=== PATIENT | male | born 1930 | race Caucasian/White ===

== ENCOUNTER 2019-05-11 12:33 | Inpatient (IN) | payer MEDICARE ==
[2019-05-11] MEDS ORDERED: Diltiazem 125 MG/25 ML ONE ×2 (13:03→13:07)
[2019-05-11] MEDS ORDERED: Aspirin Chewable 81 MG TAB ONE (13:06)
[2019-05-11 13:33] LABS: Hemoglobin 10.7 g/dL (14.0-18.0); Mean Corpuscular HGB CONC 33.3 g/dL (32.0-36.0); Mean Corpuscular Hemoglobin 31.8 pg (27.0-31.0); Mean Corpuscular Volume 95.7 fL (78.0-98.0); Mean Platelet Volume 8.2 fL (7.4-10.4); Platelet Count 140 thou/uL (130-400); RBC Distribution Width 12.6 % (11.5-14.5); Red Blood Cell (RBC) Count 3.35 mill/uL (4.70-6.10); White Blood Cell (WBC) Count 10.2 thou/uL (4.8-10.8)
[2019-05-11 13:51] LABS: ALT (SGPT) 28 U/L (8-55); AST (SGOT) 59 U/L (5-34); Albumin 3.5 g/dL (3.4-4.8); Alkaline Phosphatase 100 U/L (40-110); Anion Gap 14 mmol/L (10-20); BUN (Urea Nitrogen) 25 mg/dL (8.4-25.7); Bilirubin, Total 0.9 mg/dL (0.2-1.2); Calc. Creatinine Clearance 0 mL/min (70-130); Calcium 8.5 mg/dL (7.8-10.44); Carbon Dioxide 26 mmol/L (23-31); Chloride 97 mmol/L (98-107); Estimated GFR-MDRD 42; Globulin 3.1 g/dL (2.4-3.5); Glucose 140 mg/dL (83-110); Magnesium 2.1 mg/dL (1.6-2.6); Potassium 3.9 mmol/L (3.5-5.1); Protein, Total 6.6 g/dL (5.8-8.1); Sodium 133 mmol/L (136-145)
[2019-05-11 13:56] LABS: Band 12 % (5-11); MDiff Complete? YES; Monocytes 7 % (0-10); Neutrophil 81 % (42-75); Ovalocytes SLIGHT = 2-5 cells (100X) (0-1/hpf); Platelet Morphology Comment Appears Adequate; Polychromasia SLIGHT = 2-3 cells (100X) (0-2/hpf)
[2019-05-11 14:10] LABS: Actual Bicarbonate (HCO3a) 25.6 mEq/L (22-28); Base Excess (BEa) 2.2 mEq/L (-2.0 to +3.0); CO2 Tension 35.2 mmHg (35.0-45.0); Calcium, Ionized 1.09 mmol/L (1.12-1.30); Carboxyhemoglobin (COHb) 0.1 gm% (0.0-3.0); Hemoglobin (Hb) 10.8 g/dL (14.0-18.0); O2 Tension (PaO2) 76.7 mmHg (> 60.0); Potassium - ABG Lab 3.82 mmol/L (3.70-5.30); pH, Arterial 7.48 (7.35-7.45)
[2019-05-11 14:12] LABS: Puncture Site RRAD
[2019-05-11 14:21] LABS: CKMB 0.7 ng/mL (0-6.6)
[2019-05-11] MEDS ORDERED: Furosemide 40 MG/4 ML VIAL ONE (14:27)
[2019-05-11] MEDS ORDERED: cefTRIAXone\\ROCEPHIN 1 GM VIAL ONE (14:29)
--- NOTE | 2019-05-11 14:30 | RAD ---
EXAM: CHEST ONE VIEW HISTORY: Chest pain, dyspnea, congestion. Weakness. COMPARISON: 07/24/2011 FINDINGS: Triple lead left subclavian AICD device again remains in place. Aortic valve replacement is noted. Ca rdiac silhouette is enlarged. Pulmonary vasculature is within normal limits. Mild bibasilar parenchymal densities are seen which could be related to atelectasis. Pneumonia is not entirely exclu ded. Vascular calcification are seen in the thoracic aorta. No other interval change. IMPRESSION: 1. Bibasilar parenchymal airspace densities which could be related to bibasilar atelectasis. However, pneumonia at either lung base cannot be excluded. Follow-up exam is recommended. 2. Cardiomegaly.
[2019-05-11] MEDS ORDERED: CCU Electrolyte Replacement 1 EACH FS ONE (15:52)
[2019-05-11] MEDS ORDERED: Acetaminophen 325 MG TAB PO PRN (16:14)
[2019-05-11] MEDS ORDERED: Diltiazem 125 MG in Sodium Chloride 0.9% 100 ML IVPB SCH (16:30)
[2019-05-11] MEDS ORDERED: Enoxaparin Sodium 80 MG/0.8 ML SYRINGE SC SCH ×2 (16:30→21:00)
[2019-05-11] MEDS ORDERED: Potassium Phosphate 15 MMOL in Sodium Chloride 0.9% 250 ML 250 ML IV PRN (16:40)
[2019-05-11] MEDS ORDERED: Potassium Chloride 40 MEQ in Premix Bag 1 BAG IVPB PRN (16:40)
[2019-05-11] MEDS ORDERED: Potassium Chloride 40 MEQ in Sodium Chloride 0.9% 250 ML 250 ML IVPB PRN (16:40)
[2019-05-11] MEDS ORDERED: PHOS-NAK 1 PKT PACK PO PRN ×2 (16:40)
[2019-05-11] MEDS ORDERED: Potassium Chloride 20 MEQ TAB PO PRN (16:40)
[2019-05-11] MEDS ORDERED: Magnesium 2 GM/50 ML 2 GM in Premix Bag 1 BAG IVPB PRN (16:40)
[2019-05-11] MEDS ORDERED: Potassium Phosphate 12 MMOL in Sodium Chloride 0.9% 250 ML 250 ML IV PRN (16:40)
[2019-05-11] MEDS ORDERED: CCU ELECTROLYTE REPLACEMENT PROTOCOL FS PRN (16:40)
[2019-05-11] MEDS ORDERED: Potassium Phosphate 9 MMOL in Sodium Chloride 0.9% 100 ML IVPB PRN (16:40)
[2019-05-11] MEDS ORDERED: Magnesium Oxide 400 MG TAB PO PRN ×2 (16:40)
--- NOTE | 2019-05-11 17:16 | CON ---
DATE OF CONSULTATION: CONSULTING PHYSICIAN: Miles Garcia MD REASON FOR CONSULTATION: Flu, pneumonia, acute respiratory failure. HISTORY OF PRESENT ILLNESS: The patient is an 88-year-old male, who still lives independently. He has been sick for about a week. He was brought to the hospital with increasing shortness of breath. He was found to have type A flu with pneumonia. PAST MEDICAL HISTORY: 1. Hypertension. 2. Probable cardiomyopathy based on the fact that he has a defibrillator. 3. Coronary artery disease. PAST SURGICAL HISTORY: Aneurysm repair. ALLERGIES: NONE. MEDICATIONS: Prior to admission: 1. Aspirin 81 mg daily. 2. Paroxetine 20 mg daily. 3. Lisinopril 10 mg daily. 4. Spironolactone 25 mg daily. 5. Digoxin 0.125 mg daily. 6. Eliquis 2.5 mg twice daily. 7. Bumex 2 mg daily. 8. Singulair 10 mg daily. 9. Metoprolol 25 mg extended release daily. 10. Nifedipine 30 mg daily. 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 Denies smoking, very occasionally drinks alcohol. REVIEW OF SYSTEMS: Twelve-point review of systems is otherwise negative. PHYSICAL EXAMINATION: VITAL SIGNS: Temperature is 98.7, pulse 119, blood pressure 127/78, respiratory rate 30s, O2 saturation 95% on BiPAP. GENERAL: The patient appears to be in moderate respiratory distress on BiPAP. HEENT: Pupils react, sclerae icteric. Oropharynx dry. NECK: No adenopathy or JVD. LUNGS: Fairly clear bilaterally. CARDIOVASCULAR: S1, S2. Irregularly irregular. He has a large defibrillator implant in the left upper quadrant of chest. ABDOMEN: Soft nontender. EXTREMITIES: No clubbing, cyanosis, or edema. NEUROLOGIC: Nonfocal. LABORATORY DATA: Sodium 133, potassium 3.9, chloride 97, CO2 of 26, BUN 25, creatinine 1.6, glucose 140. BNP 411. PH of 7.48, pCO2 of 35, and pO2 of 76. White blood cell count 10, hematocrit 32.1, and platelet count 114. His test was positive for type A flu. Chest x-ray demonstrates bilateral lower lobe changes. ASSESSMENT: 1. Influenza with pneumonia. 2. Suspected exacerbation of systolic heart failure secondary to the influenza. 3. Atrial fibrillation with rapid ventricular response. PLAN: 1. The patient is going to require BiPAP at least temporarily. 2. Would treat him with Tamiflu plus empiric antibiotics. 3. Generalized supportive care, otherwise. We will follow. Job ID: [id number]
[2019-05-11 17:28] LABS: Digoxin 0.52 ng/mL (0.8-2.0)
[2019-05-11 17:34] LABS: Troponin I 0.088 ng/mL (< 0.028)
[2019-05-11] MEDS ORDERED: Digoxin 0.5 MG/2 ML AMP SLOW IVP SCH (19:30)
[2019-05-11] MEDS: Sodium Chloride 0.9% 1,000 ML IV SCH (19:47)
[2019-05-11 19:54] LABS: Troponin I 0.075 ng/mL (< 0.028)
[2019-05-11] MEDS: methylPREDNISolone Sod Succ 40 MG VIAL IVP SCH (19:58)
[2019-05-11] MEDS: Montelukast Sodium 10 mg Tablet PO SCH (19:59)
[2019-05-11] MEDS: Oseltamivir 75 MG CAP PO SCH (19:59)
[2019-05-11] MEDS ORDERED: Famotidine 20 MG TAB PO SCH (21:00)
[2019-05-11] MEDS: Azithromycin 250 MG in Sodium Chloride 0.9% 250 ML 250 ML IVPB SCH (22:00)
[2019-05-11 22:47] VITALS: BMI 23.9
[2019-05-12] MEDS: methylPREDNISolone Sod Succ 40 MG VIAL IVP SCH ×4 (00:29→18:41)
--- NOTE | 2019-05-12 03:13 | HP ---
CHIEF COMPLAINT: Shortness of breath. HISTORY OF PRESENT ILLNESS: This patient is an 88-year-old male with a history of an ischemic cardiomyopathy with a defibrillator since 2011. The patient reports that he has been feeling short of breath for 3 to 4 days, which is unusual for him. He denied any associated fever or chest pain. He has had cough with very little sputum production. He additionally had some severe rhinorrhea started, but his PCP, Dr. Cote gave him some medication and he reports that actually improved. He does report that he had a flu shot and pneumonia vaccine and has never had symptoms like this before. REVIEW OF SYSTEMS: He reports over the last week or so, his appetite has been very poor. He has been eating and drinking generally very little, otherwise, bowels were working, peeing okay and he is voiding okay. All other systems reviewed and the remainder were negative. PAST MEDICAL HISTORY: The patient denies ever having had atrial fibrillation in the past, although, appears to be on a medication regimen that would support the fact that he has had it before. He does have the ischemic cardiomyopathy with an ejection fraction of around 25%. Again, going back to 2011, he is followed by Dr. Christian for that; history of hypertension. PAST SURGICAL HISTORY: Defibrillator placements. It appears as though he had some type of aortic aneurysm repair with some sort of subsequent heart valve complications. FAMILY HISTORY: Mother at 90. Father at 52. He does not know why. SOCIAL HISTORY: The patient quit smoking 40 years ago. Quit drinking many decades ago. He is single. He is a DNAR and his surrogate decision maker would be Enmanuel Phillips ALLERGIES: NONE. CURRENT MEDICATIONS: 1. Aspirin 81 mg daily. 2. Paroxetine 20 mg daily. 3. Lisinopril 10 mg daily. 4. Spironolactone 25 mg daily. 5. Digoxin 0.125 daily. 6. Eliquis 2.5 mg b.i.d. 7. Bumex 2 mg daily. 8. Montelukast 10 mg daily. 9. Metoprolol 25 mg daily. 10. Nifedipine 30 mg daily. PHYSICAL EXAMINATION: VITAL SIGNS: Temperature is 100.9, pulse 120, respirations were 16, blood pressure was 137/64. GENERAL APPEARANCE: Age-appropriate male, in some mild respiratory distress, wearing BiPAP. He is awake and alert, pleasant and cooperative. HEENT: PERRL. Has no OP lesions. NECK: Supple and symmetric. HEART: Irregularly irregular without murmurs appreciated. LUNGS: Diminished, but clear bilaterally with no wheezes or rales noted. ABDOMEN: Soft, nontender, and nondistended. No masses. No organomegaly. Bowel sounds present. EXTREMITIES: Have no cyanosis, no clubbing, no edema. There is some superficial scaling of the skin and mild chronic stasis dermatitis. Pulses are diminished. PSYCHIATRIC: Normal affect and behavior. NEUROLOGIC: The patient's cranial nerves are intact. His extremities move spontaneously with no evidence of focal deficits. LABORATORY DATA: White count 10.2, hemoglobin 10.7, platelets 140, 81% neutrophils, 12% bands. Sodium 133, potassium 3.9, chloride 97, CO2 is 26, BUN 25, creatinine 1.58, GFR is 42, glucose 140, lactic acid 1.2, calcium 8.5, magnesium 2.1, total bilirubin 0.9, AST 59, ALT 28, alkaline phosphatase 100. Troponin 0.102, subsequent 0.088. BNP 411.5. TSH 1.0. Flu screen is negative. Chest x-ray shows bibasilar parenchymal airspace densities could be related to bibasilar atelectasis, pneumonia at either lung base cannot be excluded and cardiomegaly is present. EKG consistent with atrial fibrillation with rapid ventricular response. IMPRESSION AND PLAN: 1. Atrial fibrillation with rapid ventricular response. The patient does not report any history of atrial fibrillation, but he does have a number of cardiac issues. It appears as though he likely does have some history of atrial fibrillation given his medication regimen including digoxin. We will check a digoxin level. He was given Cardizem in the emergency department and is currently on the drip. We will continue that drip for now and try to get adequate rate control. We will consult Dr. Christian, who the patient has relationship with as well as Cardiology, appears to be maintaining adequate blood pressure and this may simply be tachycardia in response to the underlying infection. 2. Influenza A. Continue with Tamiflu 75 mg b.i.d. 3. Acute hypoxic respiratory failure secondary to influenza and possibly pneumonia. Continue with BiPAP support and consult Pulmonary Critical Care. 4. Pneumonia. The patient does not have a significant white count, but he does have a fair percentage of bands. Therefore, in light of his equivocal chest x-ray, appropriate to continue to cover with antibiotics. 5. Sepsis based on tachycardia, tachypnea, and underlying infection. We will continue antibiotics, antivirals, and follow up cultures. 6. Ischemic cardiomyopathy. The patient has diuretics to prevent heart failure exacerbations, but we will hold that in light of his recent poor intake. Continue with digoxin, beta blockers, and ADELA inhibitors. He has a defibrillator in place. 7. Renal insufficiency. GFR is 42. Unclear if this is acute or chronic as I have no old labs for comparison. We will continue to monitor. 8. Non-ST elevation myocardial infarction type 2 secondary to demand ischemia from acute hypoxic respiratory failure and tachycardia. 9. Chronic systolic congestive heart failure with slightly elevated BNP. Again, holding diuretics in light of the recent poor intake. Job ID: [id number] URI
[2019-05-12 04:02] LABS: Band 11 % (5-11); Hemoglobin 10.2 g/dL (14.0-18.0); Lymphocytes 1 % (21-51); MDiff Complete? YES; Mean Corpuscular Hemoglobin 30.9 pg (27.0-31.0); Mean Corpuscular Volume 96.6 fL (78.0-98.0); Mean Platelet Volume 8.7 fL (7.4-10.4); Metamyelocyte 2 % (0-0); Monocytes 1 % (0-10); Myelocyte 2 % (0-0); Neutrophil 83 % (42-75); Platelet Count 137 thou/uL (130-400); Platelet Morphology Comment Appears Adequate; RBC Distribution Width 12.6 % (11.5-14.5); Red Blood Cell (RBC) Count 3.29 mill/uL (4.70-6.10)
[2019-05-12 04:15] LABS: Anion Gap 17 mmol/L (10-20); BUN (Urea Nitrogen) 28 mg/dL (8.4-25.7); Calc. Creatinine Clearance 42 mL/min (70-130); Carbon Dioxide 20 mmol/L (23-31); Chloride 101 mmol/L (98-107); Estimated GFR-MDRD 47; Glucose 117 mg/dL (83-110); Potassium 3.9 mmol/L (3.5-5.1); Sodium 134 mmol/L (136-145)
[2019-05-12] MEDS: Sodium Chloride 0.9% 1,000 ML IV SCH (06:17)
--- NOTE | 2019-05-12 08:27 | RAD ---
Chest AP view INDICATION: Pneumonia COMPARISON: Prior exam dated May 11, 2019 FINDINGS: Lungs: Bibasilar airspace opacities have increased in prominence. Cardiac silhouette: There is persistent moderate to prominent cardiomegaly Pulmonary vasculature: Mild pulmonary vascular congestion persists. Pleural spaces: There are worsening small bilateral pleural effusions Upper abdomen: No abnormality seen. Osseous structures: No acute osseous abnormality. Additional findings: AICD is unchanged IMPRESSION: Worsening bilateral pleural-parenchymal opacities. Component is related to worsening small bilateral pleural effusions. The worsening bilateral lower lobe airspace opacities may reflect worsening atelectasis or pneumonia. Continued radiographic follow-up is recommended. Persistent moderate to prominent cardiomegaly with mild pulmonary vascular congestion.
[2019-05-12] MEDS ORDERED: Prevnar 13-Val Conj/PF 0.5 ML SYRINGE IM ONE (09:00)
[2019-05-12] MEDS ORDERED: Enoxaparin Sodium 80 MG/0.8 ML SYRINGE SC SCH (09:00)
[2019-05-12] MEDS ORDERED: Enoxaparin Sodium 40 MG/0.4 ML SYRINGE SC SCH (09:00)
[2019-05-12] MEDS ORDERED: FLU VACC TS2019-20(65YR UP)/PF 180 MCG/0.5 ML SYRINGE IM ONE (09:00)
--- NOTE | 2019-05-12 09:27 | PRG ---
DATE OF SERVICE: 05/12/2019 SUBJECTIVE: The patient is doing much better. He is off the BiPAP this morning. OBJECTIVE: VITAL SIGNS: Temperature 97.6, pulse 92, blood pressure 116/75, and O2 saturation in the low 90s on nasal cannula. HEENT: Unremarkable. NECK: No JVD. LUNGS: Coarse breath sounds. CARDIOVASCULAR: S1 and S2, irregularly irregular. ABDOMEN: Soft. EXTREMITIES: No edema. LABORATORY DATA: White blood cell count 12, hematocrit 31.8, and platelet count 137. Sodium 134, potassium 3.9, BUN 28, and creatinine 1.4. ASSESSMENT: 1. Influenza with pneumonia. 2. Atrial fibrillation. 3. Decompensated systolic heart failure. PLAN: 1. It should be safe to move out to the telemetry floor. Continue Tamiflu and antibiotics. 2. Continue Cardizem for rate control of atrial fibrillation. 3. Continue low-dose methylprednisolone. Job ID: [id number]
[2019-05-12] MEDS: Spironolactone 25 MG TAB PO SCH (10:00)
[2019-05-12] MEDS: Aspirin 81 mg Enteric Coated Tablet PO SCH (10:01)
[2019-05-12] MEDS: Lisinopril 10 MG TAB PO SCH (10:01)
[2019-05-12] MEDS: Digoxin 0.125 MG TAB PO SCH (10:01)
[2019-05-12] MEDS: Apixaban 2.5 MG TAB PO SCH ×2 (10:01→20:31)
[2019-05-12] MEDS: NIFEdipine XL 30 MG TAB PO SCH (10:02)
[2019-05-12] MEDS: Pantoprazole 40 MG VIAL IVP SCH (10:02)
[2019-05-12] MEDS: Oseltamivir 75 MG CAP PO SCH ×2 (10:02→20:31)
[2019-05-12] MEDS: PARoxetine 20 MG TAB PO SCH (10:02)
--- NOTE | 2019-05-12 13:37 | CON ---
DATE OF CONSULTATION: 05/12/2019 REASON FOR CONSULTATION: I am seeing Mr. 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 His problems are: 1. Chronic systolic congestive heart failure with ischemic cardiomyopathy. a. History of reduced LVEF in the range of 25%. 2. Persisting atrial fibrillation. a. History of amiodarone therapy, stopped in 09/2018 despite hence inefficacy. b. Currently under rate controlling strategy. 3. Elevated CHADS-VASc score on low-dose Eliquis therapy. a. Prior history of GI bleed, on warfarin. 4. History of aortic stenosis repair. 5. History of falls. 6. Chronic renal insufficiency. 7. Acute influenza A with upper respiratory tract infection. ALLERGIES: NONE NOTED. MEDICATIONS AT HOME: Included: 1. Metoprolol succinate. 2. Aspirin. 3. Paroxetine. 4. Digoxin. 5. Bumetanide. 6. Apixaban. 7. Spironolactone. 8. Nifedipine. 9. Lisinopril. 10. Montelukast. SUBJECTIVE: Mr. Ocasio is here due to progressive dyspnea for the last 3 to 4 days. He denies fever or chest pains. He had no stroke-like symptoms. Denies palpitations. Does not pass out. No recent ICD shocks. REVIEW OF SYSTEMS: Rest of 12-point system otherwise unremarkable. PAST HISTORY: As above. He has history of atrial fibrillation previously, maintaining sinus rhythm on amiodarone, but that failed back in September, after which the amiodarone was stopped. He is on rate controlling strategy now with the usual good symptom control. 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 He has also history of hypertension. CHADS-VASc score is 5. He is DNR. SOCIAL HISTORY: Quit smoking 40 years ago. He is single. He is DNR. His decision maker is Arleth Phillips. Quit drinking many decades ago. No drug use. FAMILY HISTORY: His mother at age 90. His father at age 5. Reasons unclear. OBJECTIVE DATA: VITAL SIGNS: Blood pressure is 116/75, heart rate 92, respirations 12, and the patient is afebrile. GENERAL: This is an alert and oriented man, in no apparent distress. NECK: Supple. Jugular veins not distended. CHEST: Coarse without crackles. HEART: Sounds are regular to rate and rhythm. No murmur or gallop. ABDOMEN: Benign. Bowel sounds positive. EXTREMITIES: Lower extremities without edema, clubbing, or cyanosis. DATABASE: EKG is reviewed on 05/11/2019, atrial fibrillation with intermittent aberrant conduction, rate of 115 beats per minute. Telemetry strips reveal occasional RVR with again intermittent aberrant conduction and frequent PVCs. Chest x-ray from 05/11/2019 reveals bibasilar parenchymal airspace densities, atelectasis versus pneumonia, cardiomegaly, and dual-chamber ICD in place. ASSESSMENT AND PLAN: Mr. Ocasio is an 88-year-old gentleman with history of aortic valve disease, ischemic cardiomyopathy, dual-chamber implantable cardiac defibrillator in place, followed at our office, who has now persisting atrial fibrillation, previously on amiodarone therapy. He is now admitted with acute influenza A with mild rapid ventricular rate. Troponin levels are borderline at 0.08 peak. The BNP levels are 411. His physical exam not suggestive of acute fluid overload. My assessment is this gentleman has chronic atrial fibrillation, which rate control is somewhat suboptimal now likely due to his intercurrent viral illness. I agree with initiate diltiazem therapy, which should be continued. Also, he could continue on his usual metoprolol therapy. Also, would continue low-dose Eliquis therapy and digoxin as well lisinopril depending on the blood pressure response. At this point, no plans for cardioversion are made. The ICD can be interrogated , but his device function has been found to be adequate on last visit in office with battery longevity at that time 9.3 years. He has low ventricular pacing percentage. At this point, I would sign off. Happy to see this gentleman back; if I can be of any further help, do not hesitate to call us. Thank you for letting me to participate in the care of this patient. Job ID: [id number] [facility]
[2019-05-12] MEDS: cefTRIAXone\\ROCEPHIN 2 GM in Sodium Chloride 0.9% 100 ML IVPB SCH (13:59)
[2019-05-12] MEDS: Famotidine 20 MG TAB PO SCH (20:31)
[2019-05-12] MEDS: Montelukast Sodium 10 mg Tablet PO SCH (20:31)
[2019-05-12] MEDS: Azithromycin 250 MG in Sodium Chloride 0.9% 250 ML 250 ML IVPB SCH (20:33)
--- NOTE | 2019-05-12 20:47 | PDOC.HOSPP ---
- Subjective Encounter Date: 05/12/19 Subjective: Says he is feeling a little better. Breathing a little easier. - Objective Vital Signs & Weight: Vital Signs (12 hours) Temp Pulse Pulse Pulse BP BP Pulse Ox 05/12/19 15:38 96.9 F L 05/12/19 14:43 76 75 99/50 L 111/61 94 L 05/12/19 11:18 96.6 F L 05/12/19 10:02 114 H 05/12/19 10:01 114 H Pulse Ox 05/12/19 15:38 05/12/19 14:43 90 L 05/12/19 11:18 05/12/19 10:02 05/12/19 10:01 Weight Weight 182 lb 2 oz Most Recent Monitor Data Heart Rate from ECG 63 NIBP 91/51 NIBP BP-Mean 64 Respiration from ECG 25 SpO2 87 I&O: 05/11/19 05/12/19 05/13/19 06:59 06:59 06:59 Intake Total 1220 1540 Output Total 550 850 Balance 670 690 Result Diagrams: 05/12/19 03:09 05/12/19 03:09 Hospitalist ROS - Medication Medications: Active Medications Generic Name Dose Route Start Last Admin Trade Name Freq PRN Reason Stop Dose Admin Apixaban 2.5 mg 05/12/19 09:00 05/12/19 20:31 Eliquis PO 2.5 mg BID TEJA Administration Aspirin 81 mg 05/12/19 09:00 05/12/19 10:01 Ecotrin PO 81 mg DAILY TEJA Administration Digoxin 0.125 mg 05/12/19 09:00 05/12/19 10:01 Lanoxin PO 0.125 mg DAILY TEJA Administration Famotidine 20 mg 05/12/19 21:00 05/12/19 20:31 Pepcid PO 20 mg 2100 TEJA Administration Sodium Chloride 1,000 mls @ 70 mls/hr 05/11/19 16:00 05/12/19 06:17 Normal Saline 0.9% IV 1,000 mls .[id number] TEJA Administration Azithromycin 250 mg/ Sodium 250 mls @ 250 mls/hr 05/11/19 18:00 05/12/19 20: 33 Chloride IVPB 250 mls Q24HR TEJA Administration Ceftriaxone Sodium 2 gm/ 100 mls @ 200 mls/hr 05/12/19 14:00 05/12/19 13:59 Sodium Chloride IVPB 100 mls 1400 TEJA Administration Diltiazem HCl 125 mg/ Sodium 125 mls @ 5 mls/hr 05/11/19 16:30 05/12/19 01:53 Chloride IVPB 125 mls INF TEJA Administration Protocol 5 MG/HR Lisinopril 10 mg 05/12/19 09:00 05/12/19 10:01 Zestril PO 10 mg DAILY TEJA Administration Methylprednisolone Sodium Succinate 20 mg 05/11/19 18:00 05/12/19 18:41 Solu-Medrol IVP 20 mg Q6HR TEJA Administration Metoprolol Succinate 25 mg 05/12/19 09:00 05/12/19 10:02 Toprol Xl PO 25 mg DAILY TEJA Administration Montelukast Sodium 10 mg 05/11/19 21:00 05/12/19 20:31 Singulair PO 10 mg QPM TEJA Administration Nifedipine 30 mg 05/12/19 09:00 05/12/19 10:02 Procardia Xl PO 30 mg DAILY TEJA Administration Oseltamivir Phosphate 75 mg 05/11/19 21:00 05/12/19 20:31 Tamiflu PO 05/16/19 09:01 75 mg BID TEJA Administration Pantoprazole Sodium 40 mg 05/12/19 09:00 05/12/19 10:02 Protonix IVP 40 mg DAILY TEJA Administration Paroxetine HCl 20 mg 05/12/19 09:00 05/12/19 10:02 Paxil PO 20 mg DAILY TEJA Administration Spironolactone 25 mg 05/12/19 08:00 05/12/19 10:00 Aldactone PO 25 mg QAM-WM TEJA Administration - Exam General Appearance: NAD, awake alert Heart: no murmur, no gallops, no rubs, normal peripheral pulses, irregular Respiratory: no wheezes, no ronchi, normal chest expansion, no tachypnea, rales (mild, scattered.) Gastrointestinal: soft, non-tender, non-distended, normal bowel sounds, no palpable masses, no hepatomegaly, no splenomegaly, no bruit Extremities: no cyanosis, no clubbing, no edema Skin: normal turgor Musculoskeletal: normal tone Psychiatric: normal affect, normal behavior, A&O x 3 Hosp A/P (1) Acute respiratory failure with hypoxia Code(s): J96.01 - ACUTE RESPIRATORY FAILURE WITH HYPOXIA Status: Acute (2) Influenza A Code(s): J10.1 - FLU DUE TO OTH IDENT INFLUENZA VIRUS W OTH RESP MANIFEST Status: Acute (3) Atrial fibrillation with rapid ventricular response Code(s): I48.91 - UNSPECIFIED ATRIAL FIBRILLATION Status: Acute (4) Pneumonia Code(s): J18.9 - PNEUMONIA, UNSPECIFIED ORGANISM Status: Acute (5) Sepsis Code(s): A41.9 - SEPSIS, UNSPECIFIED ORGANISM Status: Acute (6) KANU (acute kidney injury) Code(s): N17.9 - ACUTE KIDNEY FAILURE, UNSPECIFIED Status: Acute (7) Myocardial infarction Code(s): I21.9 - ACUTE MYOCARDIAL INFARCTION, UNSPECIFIED Status: Acute Qualifiers: Myocardial infarction type: type 2 Qualified Code(s): I21.A1 - Myocardial infarction type 2 - Plan Continue abx for pneumonia. Continue Tamiflu for influenza. Continue nebs, steroids for hypoxic resp failure which seems to be much improved. Appreciate EP consult. Continue the Diltiazem as needed for tachycardia. Continue home dig, beta staci. Transfer to tele. Renal function slightly better.
--- NOTE | 2019-05-12 22:48 | CON ---
DATE OF CONSULTATION: HISTORY: Timmy Ocasio is a pleasant 88-year-old white male who was admitted with increased shortness of breath. He was hospitalized here in April 2006, being admitted for atrial fibrillation with fast ventricular response. He also had episodes of nonsustained ventricular tachycardia. Echocardiogram EF was 25% to 30%. He underwent failed cardioversion x4. Ultimately, an ICD was placed. He also underwent cardiac catheterization which revealed one-vessel coronary artery disease - totally occluded proximal right coronary artery. He also had a 30% proximal LAD and a 40% mid circumflex stenosis. In 2011, he underwent replacement of his ICD. He also states that 1 to 1-/2 years ago, he again underwent replacement of hi ICD at [facility]. He states that discussion has been held regarding possible upgrade to a biventricular ICD; however, this has not been decided upon. He apparently was maintained in sinus rhythm, on amiodarone, but in September 2018, he went back into atrial fibrillation. Amiodarone was discontinued. He has been anticoagulated as his CHADS-VASc score is 5. He also is a DNR. He now was admitted with increased shortness of breath over the last 4 to 5 days. He denies any fever or productive cough. He also states he has been extremely weak. PAST MEDICAL HISTORY: 1. Now with persistent atrial fibrillation with rate controlled. 2. Hypertension. 3. Cardiomyopathy. MEDICATIONS: 1. Eliquis 2.5 mg b.i.d. 2. Aspirin 81 mg daily. 3. Bumex 2 mg q.a.m. 4. Digoxin 125 mcg q.a.m. 5. Lisinopril 10 mg q.a.m. 6. Metoprolol 25 XL daily. 7. Singulair 10 mg at bedtime. 8. Nifedipine 30 q.a.m. 9. Paroxetine 20 q.a.m. 10. Spironolactone 25 mg q.a.m. ALLERGIES: NONE. SOCIAL HISTORY: He quit smoking 40 years ago. OPERATIONS: ICD placement x3, aortic aneurysm repair. FAMILY HISTORY: Noncontributory. REVIEW OF SYSTEMS: A 10-point review of systems is otherwise unremarkable. PHYSICAL EXAMINATION: VITAL SIGNS: Blood pressure 113/58, pulse of 66, atrial fibrillation on the monitor with frequent paced beats. HEENT: PERRL. NECK: Supple. CHEST: Clear. CARDIAC: S1 and S2 normal without any S3, S4, or murmurs. ABDOMEN: Normal bowel sounds without tenderness. EXTREMITIES: Revealed no clubbing, cyanosis, or edema. NEUROLOGIC: Grossly intact. LABORATORY DATA: EKG reveals atrial fibrillation with fast ventricular response with nonspecific ST- and T-wave changes. Hemoglobin 10.2, hematocrit 31.8, white count 12,800, and platelets 137,000. Digoxin 0.52. pH 7.48, pCO2 pf 35.2, PO2 of 76.7. Sodium 134, potassium 3.9, chloride 101, carbon dioxide 20, BUN 28, and creatinine 1.43. Troponin I 0.088. TSH is normal. BNP 411.5. Blood cultures are negative thus far. He is positive for influenza A. IMPRESSION: 1. Influenza A illness. 2. Persistent atrial fibrillation, now with fast ventricular response due to his concomitant infection. 3. Ischemic cardiomyopathy with ejection fraction approximately 25% in the past. 4. Status post dual-chamber implantable cardioverter-defibrillator placement. 5. Coronary artery disease with totally occluded right coronary artery. PLAN: The patient's rate is being controlled with intravenous Cardizem. I would continue that and gradually taper as he improves from his current illness. No further evaluation was warranted at this time, except we will order an echocardiogram to reassess left ventricular function. Job ID: [id number] [facility]
[2019-05-13] MEDS: methylPREDNISolone Sod Succ 40 MG VIAL IVP SCH ×5 (00:34→23:13)
[2019-05-13 04:15] LABS: Band 7 % (5-11); Hemoglobin 10.1 g/dL (14.0-18.0); Hypochromia SLIGHT = 6-15 cells (100X) (0-5/hpf); Lymphocytes 5 % (21-51); MDiff Complete? YES; Mean Corpuscular HGB CONC 32.2 g/dL (32.0-36.0); Mean Corpuscular Hemoglobin 30.9 pg (27.0-31.0); Mean Corpuscular Volume 96.2 fL (78.0-98.0); Mean Platelet Volume 9.4 fL (7.4-10.4); Monocytes 3 % (0-10); Neutrophil 85 % (42-75); Platelet Count 155 thou/uL (130-400); Platelet Morphology Comment Appears Adequate; RBC Distribution Width 12.5 % (11.5-14.5); Red Blood Cell (RBC) Count 3.28 mill/uL (4.70-6.10); White Blood Cell (WBC) Count 12.7 thou/uL (4.8-10.8)
[2019-05-13 04:19] LABS: Anion Gap 15 mmol/L (10-20); BUN (Urea Nitrogen) 45 mg/dL (8.4-25.7); Calc. Creatinine Clearance 28 mL/min (70-130); Calcium 7.9 mg/dL (7.8-10.44); Carbon Dioxide 22 mmol/L (23-31); Chloride 100 mmol/L (98-107); Estimated GFR-MDRD 29; Glucose 143 mg/dL (83-110); Potassium 3.5 mmol/L (3.5-5.1); Sodium 133 mmol/L (136-145)
--- NOTE | 2019-05-13 08:39 | RAD ---
PORTABLE CHEST: HISTORY: Pneumonia followup. ICU followup. COMPARISON: 05/12/2019. FINDINGS: Bibasilar opacification is again noted consistent with bibasilar infiltrates, effusion, and atelectas is. Cardiomegaly. Mild vascular engorgement. The ICD lead is unchanged. IMPRESSION: The above findings show no significant change from yesterday. POS: [facility]
[2019-05-13] MEDS: Aspirin 81 mg Enteric Coated Tablet PO SCH (08:48)
[2019-05-13] MEDS: Digoxin 0.125 MG TAB PO SCH (08:48)
[2019-05-13] MEDS: Pantoprazole 40 MG VIAL IVP SCH (08:48)
[2019-05-13] MEDS: PARoxetine 20 MG TAB PO SCH (08:49)
[2019-05-13] MEDS: Spironolactone 25 MG TAB PO SCH (08:49)
[2019-05-13] MEDS: Oseltamivir 75 MG CAP PO SCH ×2 (08:50→21:42)
[2019-05-13] MEDS: NIFEdipine XL 30 MG TAB PO SCH (08:55)
[2019-05-13] MEDS: Apixaban 2.5 MG TAB PO SCH ×2 (09:01→21:42)
[2019-05-13] MEDS: Lisinopril 10 MG TAB PO SCH (09:02)
--- NOTE | 2019-05-13 09:02 | PRG ---
DATE OF SERVICE: 05/13/2019 SUBJECTIVE: The patient is doing reasonably well. He is very thankful for his care. OBJECTIVE: VITAL SIGNS: Temp 96.8, pulse 72, blood pressure 104/60, and O2 sat 93%. Intake 2680 and output . HEENT: Unremarkable. NECK: No JVD. CARDIAC: S1 and S2, irregularly irregular. LUNGS: Diminished breath sounds at bases. ABDOMEN: Soft. EXTREMITIES: No edema. LABORATORY DATA: White blood cell count 12.7, hematocrit 31.5, and platelet count 155. Sodium 133, potassium 3.5, chloride 100, CO2 of 22, BUN 45, creatinine 2.1, and glucose 143. ASSESSMENT: 1. Influenza with pneumonia. 2. Atrial fibrillation. 3. Systolic heart failure. PLAN: He can be transferred out to the telemetry floor. He is continuing on a Cardizem drip for rate control. We need to go ahead and stop his IV fluids. Continue antibiotics and Tamiflu. Job ID: [id number]
[2019-05-13] MEDS: Sodium Chloride 0.9% 1,000 ML IV SCH (09:28)
--- NOTE | 2019-05-13 12:01 | PDOC.EP ---
- Subjective Date: 05/13/19 Time: 08:00 Interval History: follow up for atrial fibrillation. Reports malaise with onogoing viral illness. No cardiac specific complaints. - Review of Systems Constitutional: reports: malaise, weakness. denies: chills Cardiology: denies: chest pain, edema, heart racing, light headedness, orthopnea , paroxysmal noc. dyspnea, passing out Musculoskeletal: denies: unstable gait, falls, neck pain, shoulder pain - Objective Allergies/Adverse Reactions: Allergies Allergy/AdvReac Type Severity Reaction Status Date / Time No Known Allergies Allergy Verified 05/11/19 23:44 Current Medications Acetaminophen (Tylenol) 650 mg PO Q4H PRN PRN Reason: Headache/Fever/Mild Pain (1-3) Albuterol/Ipratropium (Duoneb) 3 ml NEB Q4H PRN PRN Reason: Dyspnea/Wheezing/SOB Apixaban (Eliquis) 2.5 mg PO BID [facility] Last Admin: 05/13/19 09:01 Dose: 2.5 mg Aspirin (Ecotrin) 81 mg PO DAILY [facility] Last Admin: 05/13/19 08:48 Dose: 81 mg Digoxin (Lanoxin) 0.125 mg PO DAILY [facility] Last Admin: 05/13/19 08:48 Dose: 0.125 mg Famotidine (Pepcid) 20 mg PO 2100 [facility] Last Admin: 05/12/19 20:31 Dose: 20 mg Azithromycin 250 mg/ Sodium (Chloride) 250 mls @ 250 mls/hr IVPB Q24HR [facility] Last Admin: 05/12/19 20:33 Dose: 250 mls Ceftriaxone Sodium 2 gm/ (Sodium Chloride) 100 mls @ 200 mls/hr IVPB 1400 [facility] Last Admin: 05/12/19 13:59 Dose: 100 mls Diltiazem HCl 125 mg/ Sodium (Chloride) 125 mls @ 5 mls/hr IVPB INF [facility]; Protocol Last Admin: 05/12/19 01:53 Dose: 125 mls Potassium Chloride 40 meq/ (Sodium Chloride) 270 mls @ 135 mls/hr IVPB ASDIR PRN PRN Reason: FOR SERUM K+ 2.5 - 3.5 Potassium Chloride 40 meq/ (Device) 100 mls @ 50 mls/hr IVPB ASDIR PRN PRN Reason: FOR SERUM K+ 2.5 - 3.5 Magnesium Sulfate 1 gm/ Sodium (Chloride) 102 mls @ 102 mls/hr IV PRN PRN PRN Reason: MAG LEVEL 1.4 - 2.0 Magnesium Sulfate 2 gm/ Device 50 mls @ 50 mls/hr IVPB ASDIR PRN PRN Reason: MAGNESIUM < 1.4 Potassium Phosphate 9 mmol/ (Sodium Chloride) 103 mls @ 25.75 mls/hr IVPB ASDIR PRN PRN Reason: Phosphate 1.0-1.8 Potassium Phosphate 12 mmol/ (Sodium Chloride) 254 mls @ 63.5 mls/hr IV ASDIR PRN PRN Reason: Serum phosphate 0.5-0.9 Potassium Phosphate 15 mmol/ (Sodium Chloride) 255 mls @ 63.75 mls/hr IV ASDIR PRN PRN Reason: Serum Phos < 0.5 Magnesium Oxide (Magnesium Oxide) 400 mg PO BIDPRN PRN PRN Reason: FOR SERUM MAG 1.4 - 2.0 Magnesium Oxide (Magnesium Oxide) 800 mg PO PRN PRN PRN Reason: FOR SERUM MAG < 1.4 Methylprednisolone Sodium Succinate (Solu-Medrol) 20 mg IVP Q6HR [facility] Last Admin: 05/13/19 06:36 Dose: 20 mg Metoprolol Succinate (Toprol Xl) 25 mg PO DAILY [facility] Last Admin: 05/13/19 08:49 Dose: 25 mg Miscellaneous Medication (Phos-Nak) 1 pkt PO TIDPRN PRN PRN Reason: FOR PHOS LEVEL 1.0 - 1.8 Miscellaneous Medication (Phos-Nak) 2 pkt PO TIDPRN PRN PRN Reason: FOR PHOS LEVEL 0.5 - 1.0 Montelukast Sodium (Singulair) 10 mg PO QPM [facility] Last Admin: 05/12/19 20:31 Dose: 10 mg Nifedipine (Procardia Xl) 30 mg PO DAILY [facility] Last Admin: 05/13/19 08:55 Dose: 30 mg Ccu Electrolyte (Replacement Protocol) 0 each FS PRN PRN PRN Reason: FOR ELECTROLYTE REPLACEMENT Oseltamivir Phosphate (Tamiflu) 75 mg PO BID [facility] Stop: 05/16/19 09:01 Last Admin: 05/13/19 08:50 Dose: 75 mg Pantoprazole Sodium (Protonix) 40 mg IVP DAILY [facility] Last Admin: 05/13/19 08:48 Dose: 40 mg Paroxetine HCl (Paxil) 20 mg PO DAILY [facility] Last Admin: 05/13/19 08:49 Dose: 20 mg Potassium Chloride (K-Dur) 40 meq PO ASDIR PRN PRN Reason: FOR SERUM K+ 2.5 - 3.5 Potassium Chloride (Klor-Con) 40 meq PER TUBE ASDIR PRN PRN Reason: FOR SERUM K+ 2.5-3.5 Sodium Chloride (Flush - Normal Saline) 10 ml IVF PRN PRN PRN Reason: Saline Flush Vital Signs & Weight: Vital Signs Temp Pulse BP 05/13/19 09:02 99/64 05/13/19 08:55 75 108/53 L 05/13/19 08:48 79 05/13/19 07:42 96.8 F L 05/13/19 04:00 97.0 F L 05/13/19 03:50 62 Weight 187 lb 7 oz I/O: I/O 05/12/19 05/13/19 05/14/19 06:59 06:59 06:59 Intake Total 1220 2680 Output Total 550 850 Balance 670 1830 - Quality Measures Condition: Atrial Fibrillation/Flutter (hx or current) CV meds: Eliquis: Yes - Physical Exam General: alert & oriented x3, no apparent distress, speech clear, affect appropriate Neck: supple neck, midline trachea, no JVD/HJR, no masses, no bruit, no lymphadenopathy, no thromegaly Cardiology: regular rate, irregularly irregular Lungs: clear to auscultation, no wheeze, rales, rhonchi Neurology: cranial nerve 2-12 intact, grossly intact, coordination normal - Labs Result Diagrams: 05/13/19 03:36 05/13/19 03:36 - EKG Interpretation EKG Method: Bedside EKG shows: Atrial fibrillation - Device Device: defibrillator Device Result: [facility] - Assessment/Plan Assessment/Plan: 1. Chronic systolic congestive heart failure with ischemic cardiomyopathy. a. History of reduced LVEF in the range of 25%. 2. Persisting atrial fibrillation. a. History of amiodarone therapy, stopped in 09/2018 despite hence inefficacy. b. Currently under rate controlling strategy. 3. Elevated CHADS-VASc, on low-dose Eliquis therapy. a. Prior history of GI bleed, on warfarin. 4. History of aortic stenosis repair. 5. History of falls. 6. Chronic renal insufficiency. 7. Acute influenza A with upper respiratory tract infection. Rate control is adequate. Continue OAC on reduced dose eliquis. ICD functioning normally. EP signing off. Please don't hesitate to contact me if further EP input is desired.
[2019-05-13] MEDS: cefTRIAXone\\ROCEPHIN 2 GM in Sodium Chloride 0.9% 100 ML IVPB SCH (13:54)
[2019-05-13] MEDS: Azithromycin 250 MG in Sodium Chloride 0.9% 250 ML 250 ML IVPB SCH (18:08)
--- NOTE | 2019-05-13 20:43 | PDOC.HOSPP ---
- Subjective Encounter Date: 05/13/19 Subjective: Feeling better. Says he wants to get up an around more, but still weak. - Objective Vital Signs & Weight: Vital Signs (12 hours) Temp Pulse BP 05/13/19 19:21 97.5 F L 05/13/19 15:52 96.5 F L 05/13/19 12:00 96.5 F L 05/13/19 09:02 99/64 05/13/19 08:55 75 108/53 L 05/13/19 08:48 79 Weight Weight 187 lb 7 oz Most Recent Monitor Data Heart Rate from ECG 70 NIBP 89/54 NIBP BP-Mean 65 Respiration from ECG 29 SpO2 86 I&O: 05/12/19 05/13/19 05/14/19 06:59 06:59 06:59 Intake Total 1220 2680 960 Output Total 550 850 3 Balance 670 1830 957 Result Diagrams: 05/13/19 03:36 05/13/19 03:36 Hospitalist ROS - Medication Medications: Active Medications Generic Name Dose Route Start Last Admin Trade Name Leandro PRN Reason Stop Dose Admin Apixaban 2.5 mg 05/12/19 09:00 05/13/19 09:01 Eliquis PO 2.5 mg BID TEJA Administration Aspirin 81 mg 05/12/19 09:00 05/13/19 08:48 Ecotrin PO 81 mg DAILY TEJA Administration Digoxin 0.125 mg 05/12/19 09:00 05/13/19 08:48 Lanoxin PO 0.125 mg DAILY TEJA Administration Famotidine 20 mg 05/12/19 21:00 05/12/19 20:31 Pepcid PO 20 mg 2100 TEJA Administration Azithromycin 250 mg/ Sodium 250 mls @ 250 mls/hr 05/11/19 18:00 05/13/19 18: 08 Chloride IVPB 250 mls Q24HR TEJA Administration Ceftriaxone Sodium 2 gm/ 100 mls @ 200 mls/hr 05/12/19 14:00 05/13/19 13:54 Sodium Chloride IVPB 100 mls 1400 TEJA Administration Diltiazem HCl 125 mg/ Sodium 125 mls @ 5 mls/hr 05/11/19 16:30 05/12/19 01:53 Chloride IVPB 125 mls INF TEJA Administration Protocol 5 MG/HR Methylprednisolone Sodium Succinate 20 mg 05/11/19 18:00 05/13/19 18:03 Solu-Medrol IVP 20 mg Q6HR TEJA Administration Metoprolol Succinate 25 mg 05/12/19 09:00 05/13/19 08:49 Toprol Xl PO 25 mg DAILY TEJA Administration Montelukast Sodium 10 mg 05/11/19 21:00 05/12/19 20:31 Singulair PO 10 mg QPM TEJA Administration Nifedipine 30 mg 05/12/19 09:00 05/13/19 08:55 Procardia Xl PO 30 mg DAILY TEJA Administration Oseltamivir Phosphate 75 mg 05/11/19 21:00 05/13/19 08:50 Tamiflu PO 05/16/19 09:01 75 mg BID TEJA Administration Pantoprazole Sodium 40 mg 05/12/19 09:00 05/13/19 08:48 Protonix IVP 40 mg DAILY TEJA Administration Paroxetine HCl 20 mg 05/12/19 09:00 05/13/19 08:49 Paxil PO 20 mg DAILY TEJA Administration - Exam General Appearance: NAD, awake alert Heart: RRR, no murmur, no gallops, no rubs, normal peripheral pulses Respiratory: CTAB, no wheezes, no rales, no ronchi, normal chest expansion, no tachypnea, normal percussion Gastrointestinal: soft, non-tender, non-distended, normal bowel sounds, no palpable masses, no hepatomegaly, no splenomegaly, no bruit Skin: normal turgor Musculoskeletal: generalized weakness Psychiatric: normal affect, normal behavior, A&O x 3 Hosp A/P (1) Acute respiratory failure with hypoxia Code(s): J96.01 - ACUTE RESPIRATORY FAILURE WITH HYPOXIA Status: Acute (2) Influenza A Code(s): J10.1 - FLU DUE TO OTH IDENT INFLUENZA VIRUS W OTH RESP MANIFEST Status: Acute (3) Atrial fibrillation with rapid ventricular response Code(s): I48.91 - UNSPECIFIED ATRIAL FIBRILLATION Status: Acute (4) Pneumonia Code(s): J18.9 - PNEUMONIA, UNSPECIFIED ORGANISM Status: Acute (5) Sepsis Code(s): A41.9 - SEPSIS, UNSPECIFIED ORGANISM Status: Acute (6) KANU (acute kidney injury) Code(s): N17.9 - ACUTE KIDNEY FAILURE, UNSPECIFIED Status: Acute (7) Myocardial infarction Code(s): I21.9 - ACUTE MYOCARDIAL INFARCTION, UNSPECIFIED Status: Acute Qualifiers: Myocardial infarction type: type 2 Qualified Code(s): I21.A1 - Myocardial infarction type 2 - Plan Continue abx for pneumonia. Continue Tamiflu for influenza. Continue nebs, steroids for hypoxic resp failure which seems to be much improved. Appreciate EP consult. Focus is rate control and low dose Eliquis. Continue the Diltiazem as needed for tachycardia. Continue home dig, beta staci. Transfer to tele. Renal function slightly better. Appears that the renal function is more likely chronic and not acute.
[2019-05-13] MEDS: Famotidine 20 MG TAB PO SCH (21:42)
[2019-05-13] MEDS: Montelukast Sodium 10 mg Tablet PO SCH (21:42)
[2019-05-14 04:54] LABS: Anion Gap 16 mmol/L (10-20); BUN (Urea Nitrogen) 58 mg/dL (8.4-25.7); Calc. Creatinine Clearance 23 mL/min (70-130); Calcium 7.9 mg/dL (7.8-10.44); Carbon Dioxide 20 mmol/L (23-31); Cardiac Risk 5.5 (Less than 4.5); Chloride 98 mmol/L (98-107); Cholesterol 115 mg/dl (< 200 Desired); Estimated GFR-MDRD 22; Glucose 144 mg/dL (83-110); HDL Cholesterol 21 mg/dL (>60 Neg Risk); LDL Cholesterol, Calculated 62 mg/dL; Potassium 3.6 mmol/L (3.5-5.1); Sodium 130 mmol/L (136-145); Triglycerides 161 mg/dL (Less than 150)
[2019-05-14 05:00] LABS: Band 5 % (5-11); Hemoglobin 10.2 g/dL (14.0-18.0); Lymphocytes 3 % (21-51); MDiff Complete? YES; Mean Corpuscular Hemoglobin 30.6 pg (27.0-31.0); Mean Corpuscular Volume 95.6 fL (78.0-98.0); Mean Platelet Volume 9.6 fL (7.4-10.4); Monocytes 1 % (0-10); Neutrophil 91 % (42-75); Platelet Count 201 thou/uL (130-400); Platelet Morphology Comment Appears Adequate; RBC Distribution Width 12.4 % (11.5-14.5); Red Blood Cell (RBC) Count 3.33 mill/uL (4.70-6.10); White Blood Cell (WBC) Count 16.1 thou/uL (4.8-10.8)
[2019-05-14] MEDS: methylPREDNISolone Sod Succ 40 MG VIAL IVP SCH (06:20)
[2019-05-14] MEDS: Aspirin 81 mg Enteric Coated Tablet PO SCH (10:11)
[2019-05-14] MEDS: Digoxin 0.125 MG TAB PO SCH (10:11)
[2019-05-14] MEDS: Apixaban 2.5 MG TAB PO SCH ×2 (10:11→21:24)
[2019-05-14] MEDS: PARoxetine 20 MG TAB PO SCH (10:12)
[2019-05-14] MEDS: NIFEdipine XL 30 MG TAB PO SCH (10:12)
[2019-05-14] MEDS: Oseltamivir 75 MG CAP PO SCH ×2 (10:12→21:24)
[2019-05-14] MEDS: Pantoprazole 40 MG VIAL IVP SCH (10:13)
--- NOTE | 2019-05-14 10:59 | ULT ---
BILATERAL RENAL ULTRASOUND: Date: 05/14/2019 HISTORY: Chronic kidney disease. FINDINGS: Right kidney measures 11.0 cm in length. Left kidney measures 11.0 cm in length. There is mild cortical thinning which is especially prominent on the right. There is no hydronephrosi s. No mass lesion identified. Mild increased cortical echogenicity. Urinary bladder is mildly distended. There is evidence of mild bladder wall thickening. IMPRESSION: 1. Cortical thinning with mild increased cortical echogenicity. 2. Evidence of urinary bladder wall thickening. POS: H
--- NOTE | 2019-05-14 11:45 | PRG ---
DATE OF SERVICE: 05/14/2019 SUBJECTIVE: The patient is in good spirits. He says he is feeling better. His pulmonary status has been stable, but he is still requiring 5 L of oxygen nasal cannula. OBJECTIVE: VITAL SIGNS: His temperature is 95.9, pulse 65, respirations 18, O2 saturation 95% on 5 L, and blood pressure 118/58. HEENT: Unremarkable. NECK: No adenopathy or JVD. LUNGS: Few crackles in the bases. CARDIAC: S1 and S2. Regular. ABDOMEN: Soft. EXTREMITIES: No edema. ASSESSMENT: Influenza with pneumonia. PLAN: The patient seems to be responding appropriately to current care. Continue Tamiflu and antibiotics. I will stop his IV steroids, placed on oral steroids for a couple of days and then stop. Job ID: [id number]
[2019-05-14] MEDS: cefTRIAXone\\ROCEPHIN 2 GM in Sodium Chloride 0.9% 100 ML IVPB SCH (14:15)
[2019-05-14] MEDS ORDERED: Sodium Chloride 0.9% 1,000 ML IV SCH (17:00)
[2019-05-14] MEDS: Azithromycin 250 MG in Sodium Chloride 0.9% 250 ML 250 ML IVPB SCH (17:10)
[2019-05-14] MEDS ORDERED: Albumin 25% 25 GM/100 ML BOT IVPB SCH (19:00)
[2019-05-14] MEDS: Famotidine 20 MG TAB PO SCH (21:24)
[2019-05-14] MEDS: Montelukast Sodium 10 mg Tablet PO SCH (21:24)
[2019-05-14] MEDS: Albumin 25% 25 GM/100 ML BOT IVPB SCH (21:24)
--- NOTE | 2019-05-14 22:14 | PDOC.HOSPP ---
- Subjective Encounter Date: 05/14/19 Subjective: Doing well. No complaints. Breathing well. Wants to get up and around. - Objective Vital Signs & Weight: Vital Signs (12 hours) Temp Pulse Resp BP BP Pulse Ox 05/14/19 15:58 96.4 F L 77 14 102/54 L 92 L 05/14/19 11:54 95.9 F L 83 20 109/65 97 Weight Weight 192 lb 11.2 oz Most Recent Monitor Data Heart Rate from ECG 70 NIBP 89/54 NIBP BP-Mean 65 Respiration from ECG 29 SpO2 86 I&O: 05/13/19 05/14/19 05/15/19 06:59 06:59 06:59 Intake Total 2680 960 1861 Output Total 850 3 Balance 4900 575 9803 Result Diagrams: 05/14/19 04:05 05/14/19 04:05 Hospitalist ROS - Medication Medications: Active Medications Generic Name Dose Route Start Last Admin Trade Name Freq PRN Reason Stop Dose Admin Albumin Human 25 gm 05/14/19 21:00 05/14/19 21:24 Albumin 25% IVPB 05/15/19 15:01 25 gm 0300,0900,1500,2100 TEJA Administration Apixaban 2.5 mg 05/12/19 09:00 05/14/19 21:24 Eliquis PO 2.5 mg BID TEJA Administration Aspirin 81 mg 05/12/19 09:00 05/14/19 10:11 Ecotrin PO 81 mg DAILY TEJA Administration Digoxin 0.125 mg 05/12/19 09:00 05/14/19 10:11 Lanoxin PO 0.125 mg DAILY TEJA Administration Famotidine 20 mg 05/12/19 21:00 05/14/19 21:24 Pepcid PO 20 mg 2100 TEJA Administration Azithromycin 250 mg/ Sodium 250 mls @ 250 mls/hr 05/11/19 18:00 05/14/19 17: 10 Chloride IVPB 250 mls Q24HR TEJA Administration Ceftriaxone Sodium 2 gm/ 100 mls @ 200 mls/hr 05/12/19 14:00 05/14/19 14:15 Sodium Chloride IVPB 100 mls 1400 TEJA Administration Sodium Chloride 1,000 mls @ 100 mls/hr 05/14/19 17:00 05/14/19 17:10 Normal Saline 0.9% IV 05/14/19 23:59 1,000 mls .Q10H TEJA Administration Metoprolol Succinate 25 mg 05/12/19 09:00 05/14/19 10:12 Toprol Xl PO 25 mg DAILY TEJA Administration Montelukast Sodium 10 mg 05/11/19 21:00 05/14/19 21:24 Singulair PO 10 mg QPM TEJA Administration Oseltamivir Phosphate 75 mg 05/11/19 21:00 05/14/19 21:24 Tamiflu PO 05/16/19 09:01 75 mg BID TEJA Administration Pantoprazole Sodium 40 mg 05/12/19 09:00 05/14/19 10:13 Protonix IVP 40 mg DAILY TEJA Administration Paroxetine HCl 20 mg 05/12/19 09:00 05/14/19 10:12 Paxil PO 20 mg DAILY TEJA Administration Sodium Chloride 10 ml 05/11/19 21:38 05/14/19 10:13 Flush - Normal Saline IVF 10 ml PRN PRN Administration Saline Flush - Exam General Appearance: NAD, awake alert Heart: no murmur, no gallops, no rubs, normal peripheral pulses, irregular Respiratory: CTAB, no wheezes, no rales, no ronchi, normal chest expansion, no tachypnea, normal percussion Gastrointestinal: soft, non-tender, non-distended, normal bowel sounds, no palpable masses, no hepatomegaly, no splenomegaly, no bruit Extremities: no cyanosis, no clubbing, no edema Skin: normal turgor, no lesions, no rashes Musculoskeletal: normal tone, normal strength, no muscle wasting Psychiatric: normal affect, normal behavior, A&O x 3 Hosp A/P (1) Acute respiratory failure with hypoxia Code(s): J96.01 - ACUTE RESPIRATORY FAILURE WITH HYPOXIA Status: Acute (2) Influenza A Code(s): J10.1 - FLU DUE TO OTH IDENT INFLUENZA VIRUS W OTH RESP MANIFEST Status: Acute (3) Atrial fibrillation with rapid ventricular response Code(s): I48.91 - UNSPECIFIED ATRIAL FIBRILLATION Status: Acute (4) Pneumonia Code(s): J18.9 - PNEUMONIA, UNSPECIFIED ORGANISM Status: Acute (5) Sepsis Code(s): A41.9 - SEPSIS, UNSPECIFIED ORGANISM Status: Acute (6) KANU (acute kidney injury) Code(s): N17.9 - ACUTE KIDNEY FAILURE, UNSPECIFIED Status: Acute (7) Myocardial infarction Code(s): I21.9 - ACUTE MYOCARDIAL INFARCTION, UNSPECIFIED Status: Acute Qualifiers: Myocardial infarction type: type 2 Qualified Code(s): I21.A1 - Myocardial infarction type 2 - Plan Continue abx for pneumonia. Continue Tamiflu for influenza. Continue nebs, steroids for hypoxic resp failure which seems to be much improved. Pulm following. Changed to po abx. Appreciate EP consult. Focus is rate control and low dose Eliquis. Continue the Diltiazem as needed for tachycardia. Continue home dig, beta staci. Transfer to tele. Renal function slightly worse Appears that the renal function is more likely acute on chronic. Nephrology consulted.
--- NOTE | 2019-05-15 00:20 | CON ---
DATE OF CONSULTATION: HISTORY OF PRESENT ILLNESS: Mr. Ocasio is an 88-year-old white male, who was admitted for shortness of breath. Initially, it was felt that he might have CHF. He also was found to be in AFib with rapid ventricular response. He was subsequently diagnosed to have a pneumonia/flu. We are now being consulted for his acute kidney injury on top of his chronic renal failure. Please note at one time he has been on spironolactone, Bumex, and ADELA inhibitor. These are currently being discontinued. REVIEW OF SYSTEMS: Previously with shortness of breath. No syncopal episode. No nausea. No vomiting. No diarrhea. No gross hematuria. No dysuria. No urinary frequency. No abdominal pain. Appetite is fair. CURRENT MEDICATIONS/HOSPITAL MEDICATIONS: 1. Apixaban 2.5 mg p.o. b.i.d. 2. Aspirin 81 mg daily. 3. Azithromycin 250 mg IV daily. 4. Ceftriaxone 2 g IV daily. 5. Digoxin 0.125 mg daily. 6. Famotidine 20 mg b.i.d. 7. Ipratropium neb treatment q.6. 8. Magnesium oxide p.r.n. 9. Status post methylprednisolone. 10. Singulair 10 mg daily. 11. Nifedipine 30 mg daily. 12. Normal saline -currently on hold. 13. Tamiflu 75 mg p.o. b.i.d. 14. Protonix 40 mg daily. 15. Paxil 20 mg daily. DATA: Cardiac echo showed a decreased EF. PAST MEDICAL HISTORY: 1. Chronic AFib. 2. Chronic renal failure. 3. Depression. 4. Status post CHF, COPD, recent diagnosis of pneumonia/flu infection, longstanding hypertension. PAST SURGICAL HISTORY: 1. Status post AICD placement. 2. 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 3. Status post cardiac cath. FAMILY HISTORY: No family history of ESRD. SOCIAL HISTORY: Patient lives in [place]. He is single, lives alone. No children. 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 Smoked for at least 10 years. Education, 9th grade. Currently, no alcohol. ALLERGIES: NONE. TRAUMA: None. IMMUNIZATIONS: Up to date. HOSPITALIZATIONS: Please see past medical history. PHYSICAL EXAMINATION: VITAL SIGNS: Blood pressure is 102/54, heart rate 77, respiratory rate 14, temperature 96.4, and pulse ox 92%. GENERAL: Noted to be awake, alert, comfortable, not in overt distress. SKIN: Adequate turgor. HEENT: Pinkish conjunctivae. Anicteric sclerae. NECK: No neck mass. No carotid bruits. No JVD. LUNGS: Decreased breath sounds, occasional wheezing. HEART: Irregular. No murmur, no gallops, no rubs. ABDOMEN: Globular, soft, and nontender. EXTREMITIES: No edema. NEUROLOGIC: Moving all extremities. Oriented to 3 spheres. Decreased hearing. IMAGING: Chest x-ray of May 13, 2019, shows increased lung markings. Cardiac echo showed decreased EF. LABORATORIES: Renal ultrasound showed cortical thinning with increased echogenicity. Sodium 130, potassium 3.6, chloride 98, carbon dioxide 20, BUN 58, creatinine 2.75, glucose 144, and calcium 7.9. May 13, 2019; creatinine 2.19. May 12, 2019, creatinine 1.43. May 11, creatinine was 1.58. Urinalysis pending. ASSESSMENT/PLAN: Acute kidney injury, consider hemodynamically-mediated dysfunction. Patient has had some irregular heartbeat/rapid atrial fibrillation that could be causing a prerenal azotemia. We are waiting for the urinalysis, it is still pending. We will need to rule out the possibility of an acute tubular necrosis and we will review the urine sediment. Renal ultrasound shows chronicity of the renal dysfunction. For the moment, continue current management. His breathing is much better. My bias is to give at least albumin infusion with this patient 25 g IV q.6 for 4 doses. There is no indication for any dialytic intervention. Job ID: [id number] [facility]
[2019-05-15 03:45] LABS: Bacteria/HPF None Seen HPF (None Seen); Bilirubin Negative (Negative); Blood, Urine Negative (Negative); Clarity Clear (Clear); Glucose, Urine (Dipstick) Normal (Negative); Leukocyte Negative Leu/uL (Negative); Nitrite Negative (Negative); Protein, Urine (Dipstick) 30 mg/dL (Neg-Trace); RBC/HPF 0-3 HPF (0-3); Squamous Epithelial 0-3 HPF (0-3); Urobilinogen Normal mg/dL (Less than 2)
[2019-05-15] MEDS: Albumin 25% 25 GM/100 ML BOT IVPB SCH ×4 (04:15→20:52)
[2019-05-15 04:44] LABS: #Lymphocytes 0.2 thou/uL (1.20-3.40); #Monocytes 0.4 thou/uL (0.11-0.59); #Neutrophils 13.3 thou/uL (1.40-6.50); %Eosinophils 0.1 % (0.0-10.0); %Lymphocytes 1.4 % (21.0-51.0); %Monocytes 2.6 % (0.0-10.0); %Neutrophils 95.9 % (42.0-75.0); Mean Corpuscular HGB CONC 33.3 g/dL (32.0-36.0); Mean Corpuscular Hemoglobin 31.4 pg (27.0-31.0); Mean Corpuscular Volume 94.4 fL (78.0-98.0); Mean Platelet Volume 9.4 fL (7.4-10.4); Platelet Count 211 thou/uL (130-400); RBC Distribution Width 12.6 % (11.5-14.5); Red Blood Cell (RBC) Count 3.17 mill/uL (4.70-6.10); White Blood Cell (WBC) Count 13.9 thou/uL (4.8-10.8)
[2019-05-15 05:07] LABS: Anion Gap 19 mmol/L (10-20); BUN (Urea Nitrogen) 67 mg/dL (8.4-25.7); Calc. Creatinine Clearance 22 mL/min (70-130); Carbon Dioxide 18 mmol/L (23-31); Chloride 97 mmol/L (98-107); Estimated GFR-MDRD 20; Potassium 3.7 mmol/L (3.5-5.1); Sodium 130 mmol/L (136-145)
[2019-05-15 05:08] LABS: Calcium 7.7 mg/dL (7.8-10.44); Glucose 121 mg/dL (83-110)
[2019-05-15] MEDS: Oseltamivir 75 MG CAP PO SCH ×2 (08:50→20:53)
[2019-05-15] MEDS: predniSONE 20 MG TAB PO SCH (08:50)
[2019-05-15] MEDS: Apixaban 2.5 MG TAB PO SCH ×2 (08:51→20:53)
[2019-05-15] MEDS: Aspirin 81 mg Enteric Coated Tablet PO SCH (08:51)
[2019-05-15] MEDS: PARoxetine 20 MG TAB PO SCH (08:51)
[2019-05-15] MEDS: Digoxin 0.125 MG TAB PO SCH (08:51)
--- NOTE | 2019-05-15 09:09 | PRG ---
DATE OF SERVICE: 05/15/2019 SUBJECTIVE: Mr. Ocasio is an 88-year-old white male, who was seen by the Renal Service for his acute kidney injury on top of his chronic renal failure. Initially, we felt he may simply have a hemodynamically-mediated renal dysfunction. He was given albumin infusion. Please note, his diuretics are currently on hold. In addition, review of the urine sediment did not suggest any acute tubular necrosis. Of interest, he does have a decreased EF. His most recent chest x-ray did not show overt CHF. He voices no new complaints today. He has been diagnosed with bronchitis/pneumonia/flu infection. He is currently on IV antibiotics and on Tamiflu. He denies any chest pain or shortness of breath today. OBJECTIVE: VITAL SIGNS: Blood pressure 120/57, heart rate 70, respiratory rate 18, temperature 96.2, O2 saturation 93%. GENERAL: Awake, alert, sitting comfortable, not in distress. SKIN: Adequate turgor. HEENT: He has pinkish conjunctivae. Anicteric sclerae. No neck mass. No carotid bruits. No JVD. CHEST: No deformities. LUNGS: Decreased breath sounds. HEART: Irregular. No murmur, no gallops, no rubs. ABDOMEN: Globular, soft, nontender. No masses. EXTREMITIES: No edema. No deformities. MEDICATIONS: Medications of May 15, 2019, was reviewed. LABORATORY DATA: Laboratories of May 15, 2019, urinalysis showed specific gravity 1.018 with a protein of 30, rbc 0 to 3, wbc 4 to 6, hyaline casts 21 to 50. Sodium 130, potassium 3.7, chloride 97, carbon dioxide 18, BUN 67, creatinine 3.01, glucose 121, calcium 7.7. May 14, 2019, creatinine 2.75. May 12, 2019, creatinine 1.43. ASSESSMENT AND PLAN: 1. Acute kidney injury on top of his chronic renal failure, consider hemodynamically-mediated renal dysfunction. My bias is to continue albumin infusion for another day 25 g IV q.6h. In addition, we will empirically treat with normal saline at 75 mL/hour. No indication for any dialytic intervention. Continue current management. 2. Pneumonia/bronchitis on IV antibiotics. 3. Flu infection-on Tamiflu. 4. Overall agree with current management. We will recheck basic metabolic profile and CBC in a.m. Job ID: [id number]
[2019-05-15] MEDS ORDERED: Cefdinir 300 MG CAP PO SCH (10:15)
--- NOTE | 2019-05-15 10:19 | PRG ---
DATE OF SERVICE: 05/15/2019 SUBJECTIVE: The patient is feeling better, has no acute complaints. OBJECTIVE: VITAL SIGNS: Temperature 96.2, pulse 70, respirations are 18, and O2 saturation 93% on 4 L. HEENT: Unremarkable. NECK: No adenopathy or JVD. LUNGS: Fairly clear. CARDIAC: S1 and S2. Regular. ABDOMEN: Soft. EXTREMITIES: No edema. LABORATORY DATA: White blood cell count 13.9, hematocrit 29.9, and platelet count 211. Sodium 130, potassium 3.7, chloride 97, BUN 67, creatinine 3.0, and glucose 121. ASSESSMENT: 1. Influenza with pneumonia, improved. 2. Acute hypoxic respiratory failure, improved. 3. Chronic kidney disease, worsening. PLAN: 1. I will go ahead and stop his azithromycin, ceftriaxone and put him on Omnicef instead. 2. Continue Tamiflu until the full five days is up. 3. Further care per hospitalist group and Nephrology. Job ID: [id number]
[2019-05-15] MEDS: Sodium Chloride 0.9% 1,000 ML IV SCH ×2 (13:00→20:54)
[2019-05-15] MEDS: Pantoprazole 40 MG VIAL IVP SCH (13:01)
[2019-05-15] MEDS ORDERED: Tamsulosin HCl 0.4 MG CAP PO SCH (14:15)
--- NOTE | 2019-05-15 14:33 | PDOC.HOSPP ---
- Subjective Encounter Date: 05/15/19 Subjective: Feels ok. No complaints. - Objective Vital Signs & Weight: Vital Signs (12 hours) Temp Pulse Resp BP Pulse Ox 05/15/19 08:51 70 05/15/19 07:36 96.2 F L 70 18 120/57 L 93 L 05/15/19 03:31 60 20 115/57 L Weight Weight 196 lb 1.6 oz Most Recent Monitor Data Heart Rate from ECG 70 NIBP 89/54 NIBP BP-Mean 65 Respiration from ECG 29 SpO2 86 I&O: 05/14/19 05/15/19 05/16/19 06:59 06:59 06:59 Intake Total 960 3161 Output Total 3 100 Balance 957 3061 Result Diagrams: 05/15/19 03:33 05/15/19 03:33 Hospitalist ROS - Medication Medications: Active Medications Generic Name Dose Route Start Last Admin Trade Name Freq PRN Reason Stop Dose Admin Apixaban 2.5 mg 05/12/19 09:00 05/15/19 08:51 Eliquis PO 2.5 mg BID TEJA Administration Aspirin 81 mg 05/12/19 09:00 05/15/19 08:51 Ecotrin PO 81 mg DAILY TEJA Administration Digoxin 0.125 mg 05/12/19 09:00 05/15/19 08:51 Lanoxin PO 0.125 mg DAILY TEJA Administration Famotidine 20 mg 05/12/19 21:00 05/14/19 21:24 Pepcid PO 20 mg 2100 TEJA Administration Sodium Chloride 1,000 mls @ 75 mls/hr 05/15/19 08:45 05/15/19 13:00 Normal Saline 0.9% IV 1,000 mls .[id number] TEJA Administration Metoprolol Succinate 25 mg 05/12/19 09:00 05/15/19 08:51 Toprol Xl PO 25 mg DAILY TEJA Administration Montelukast Sodium 10 mg 05/11/19 21:00 05/14/19 21:24 Singulair PO 10 mg QPM TEJA Administration Oseltamivir Phosphate 75 mg 05/11/19 21:00 05/15/19 08:50 Tamiflu PO 05/16/19 09:01 75 mg BID TEJA Administration Pantoprazole Sodium 40 mg 05/12/19 09:00 05/15/19 13:01 Protonix IVP 40 mg DAILY TEJA Administration Paroxetine HCl 20 mg 05/12/19 09:00 05/15/19 08:51 Paxil PO 20 mg DAILY TEJA Administration Prednisone 40 mg 05/15/19 09:00 05/15/19 08:50 Prednisone PO 05/18/19 09:01 40 mg DAILY TEJA Administration Sodium Chloride 10 ml 05/11/19 21:38 05/15/19 08:52 Flush - Normal Saline IVF 10 ml PRN PRN Administration Saline Flush - Exam General Appearance: NAD, awake alert ENT: normocephalic atraumatic, no oropharyngeal lesions, moist mucosa Heart: RRR, no murmur, no gallops, no rubs, normal peripheral pulses Respiratory: CTAB, no wheezes, no rales, no ronchi, normal chest expansion, no tachypnea, normal percussion Gastrointestinal: soft, non-tender, non-distended, normal bowel sounds, no palpable masses, no hepatomegaly, no splenomegaly, no bruit Extremities: no cyanosis, no clubbing, no edema Skin: normal turgor Neurological: cranial nerve grossly intact, normal sensation to touch, no weakness, no focal deficits, no new deficit Musculoskeletal: normal tone, normal strength, no muscle wasting Psychiatric: normal affect, normal behavior, A&O x 3 Hosp A/P (1) Acute respiratory failure with hypoxia Code(s): J96.01 - ACUTE RESPIRATORY FAILURE WITH HYPOXIA Status: Acute (2) Influenza A Code(s): J10.1 - FLU DUE TO OTH IDENT INFLUENZA VIRUS W OTH RESP MANIFEST Status: Acute (3) Atrial fibrillation with rapid ventricular response Code(s): I48.91 - UNSPECIFIED ATRIAL FIBRILLATION Status: Acute (4) Pneumonia Code(s): J18.9 - PNEUMONIA, UNSPECIFIED ORGANISM Status: Acute (5) Sepsis Code(s): A41.9 - SEPSIS, UNSPECIFIED ORGANISM Status: Acute (6) KANU (acute kidney injury) Code(s): N17.9 - ACUTE KIDNEY FAILURE, UNSPECIFIED Status: Acute (7) Myocardial infarction Code(s): I21.9 - ACUTE MYOCARDIAL INFARCTION, UNSPECIFIED Status: Acute Qualifiers: Myocardial infarction type: type 2 Qualified Code(s): I21.A1 - Myocardial infarction type 2 (8) Urinary retention Code(s): R33.9 - RETENTION OF URINE, UNSPECIFIED Status: Acute - Plan Continue abx for pneumonia. Changed to po omnicef by Pulm. Continue Tamiflu for influenza. Continue nebs, steroids for hypoxic resp failure which seems to be much improved. Pulm following. Appreciate EP consult. Focus is rate control and low dose Eliquis. Continue the Diltiazem as needed for tachycardia. Continue home dig, beta staci. Renal function slightly worse Appears that the renal function is more likely acute on chronic. Nephrology consulted. Continuing the Albumin and IVF. UOP has been low and bladder scan with 450 cc. I and O catheter. Start Tamsulosin. Still weak and a little hypoxic. Will andrea need some rehab. D/W CM.
[2019-05-15] MEDS: Famotidine 20 MG TAB PO SCH (20:53)
[2019-05-15] MEDS: Montelukast Sodium 10 mg Tablet PO SCH (20:53)
[2019-05-16 04:45] LABS: #Lymphocytes 0.3 thou/uL (1.20-3.40); #Monocytes 0.5 thou/uL (0.11-0.59); %Eosinophils 0.2 % (0.0-10.0); %Lymphocytes 2.8 % (21.0-51.0); %Monocytes 5.2 % (0.0-10.0); %Neutrophils 91.8 % (42.0-75.0); Hemoglobin 9.8 g/dL (14.0-18.0); Mean Corpuscular Hemoglobin 32.2 pg (27.0-31.0); Mean Corpuscular Volume 94.6 fL (78.0-98.0); Mean Platelet Volume 8.9 fL (7.4-10.4); Platelet Count 175 thou/uL (130-400); RBC Distribution Width 12.5 % (11.5-14.5); Red Blood Cell (RBC) Count 3.03 mill/uL (4.70-6.10); White Blood Cell (WBC) Count 9.9 thou/uL (4.8-10.8)
[2019-05-16 04:55] LABS: Anion Gap 18 mmol/L (10-20); BUN (Urea Nitrogen) 66 mg/dL (8.4-25.7); Calc. Creatinine Clearance 24 mL/min (70-130); Calcium 7.9 mg/dL (7.8-10.44); Carbon Dioxide 18 mmol/L (23-31); Chloride 102 mmol/L (98-107); Estimated GFR-MDRD 22; Glucose 110 mg/dL (83-110); Potassium 3.6 mmol/L (3.5-5.1); Sodium 134 mmol/L (136-145)
[2019-05-16] MEDS: Albumin 25% 25 GM/100 ML BOT IVPB SCH ×2 (05:40→09:26)
[2019-05-16] MEDS: Sodium Chloride 0.9% 1,000 ML IV SCH ×2 (05:40→18:14)
--- NOTE | 2019-05-16 09:05 | PRG ---
DATE OF SERVICE: 05/16/2019 SUBJECTIVE: The patient is doing well. He had no acute complaints. Remains on about 4 L of oxygen. PHYSICAL EXAMINATION: VITAL SIGNS: Temperature is 96.8, pulse 83, respirations 14, saturations 95% on room air, blood pressure 142/64. HEENT: Unremarkable. NECK: No JVD. LUNGS: Clear, but distant breath sounds. CARDIAC: S1 and S2, regular. ABDOMEN: Soft. EXTREMITIES: No edema. LABORATORY DATA: White blood cell count 9.9, hematocrit 28.7, and platelet count 175. Sodium 134, potassium 3.6, chloride 102, CO2 of 18, BUN 66, creatinine 2.7, glucose 110. ASSESSMENT: 1. Influenza pneumonia. 2. Hypoxic respiratory failure. 3. Systolic/diastolic heart failure. PLAN: The patient finishes Tamiflu today. Main issue now is weaning the oxygen. He was probably nearing the point where he can go to rehab. Dr. Travis will be available as help needed this weekend. Job ID: [id number]
[2019-05-16] MEDS: Apixaban 2.5 MG TAB PO SCH ×2 (09:26→22:00)
[2019-05-16] MEDS: Pantoprazole 40 MG VIAL IVP SCH (09:26)
[2019-05-16] MEDS: Oseltamivir 75 MG CAP PO SCH (09:27)
[2019-05-16] MEDS: Tamsulosin HCl 0.4 MG CAP PO SCH (09:27)
[2019-05-16] MEDS: predniSONE 20 MG TAB PO SCH (09:27)
[2019-05-16] MEDS: PARoxetine 20 MG TAB PO SCH (09:27)
[2019-05-16] MEDS: Cefdinir 300 MG CAP PO SCH (09:28)
[2019-05-16] MEDS: Digoxin 0.125 MG TAB PO SCH (09:28)
[2019-05-16] MEDS: Aspirin 81 mg Enteric Coated Tablet PO SCH (09:28)
--- NOTE | 2019-05-16 09:32 | PRG ---
DATE OF SERVICE: 05/16/2019 SUBJECTIVE: Mr. Ocasio is an 88-year-old white male, who was seen by the Renal Service for his acute kidney injury on top of his chronic renal failure. I felt at that time he had hemodynamically-mediated renal dysfunction. He was given albumin infusion, normal saline. His renal function is actually improving. He was also diagnosed to have bronchitis/pneumonia-on IV antibiotics. Pulmonary is following. No new complaints today. No chest pain or shortness of breath. OBJECTIVE: VITAL SIGNS: Blood pressure is noted at 142/64, heart rate 83, respiratory rate 14, temperature 96.8, and pulse ox 95%. GENERAL: The patient is awake, sitting comfortable, somewhat confused. SKIN: Adequate turgor. HEENT: He has slightly pale conjunctivae. Anicteric sclerae. No neck mass. No carotid bruits. No JVD. CHEST: No deformities. LUNGS: Harsh breath sounds. HEART: Normal sinus rhythm. No murmur. No gallops. No rubs. ABDOMEN: Globular, soft, and nontender. No masses. EXTREMITIES: No edema. No deformities. MEDICATIONS: Medications of May 16, 2019, was reviewed. LABORATORY DATA: Of May 16, 2019; white count 9.9, hemoglobin 9.8. Sodium 134, potassium 3.6, chloride 102, carbon dioxide 18, BUN 66, creatinine 2.71, glucose 110, and calcium 7.9. ASSESSMENT AND PLAN: 1. Acute kidney injury-superimposed hemodynamically-mediated renal dysfunction. Continue gentle volume hydration. No indication for dialytic intervention. Please note, creatinine improved from 3.0 to a most recent value of 2.71. 2. Chronic renal failure. Continue supportive care ? of hypertensive nephropathy. 3. Pneumonia/bronchitis, on p.o. antibiotics at the present time. Pulmonary is following. We will recheck basic metabolic profile and CBC in a.m. Job ID: [id number]
--- NOTE | 2019-05-16 20:15 | PDOC.EVN ---
Event Note - Event Note Event Note: Rosa BROWN called for valentine order as patient has I/O catheter orders and patient is complaining of pain with frequent catheters. Will place order. Day team will reassess need in AM.
[2019-05-16] MEDS: Famotidine 20 MG TAB PO SCH (21:59)
[2019-05-16] MEDS: Montelukast Sodium 10 mg Tablet PO SCH (22:00)
--- NOTE | 2019-05-16 23:09 | PDOC.HOSPP ---
- Subjective Encounter Date: 05/16/19 Subjective: Has been requesting someone to help him get up and walk, but his is too weak to get up on his own. He did get up with PT. Denies other complaints. - Objective Vital Signs & Weight: Vital Signs (12 hours) Temp Pulse Resp BP Pulse Ox 05/16/19 20:00 97.4 F L 77 18 131/70 91 L 05/16/19 16:05 84 14 137/63 05/16/19 11:48 97.8 F 70 12 130/71 92 L Weight Weight 198 lb 1.6 oz Most Recent Monitor Data Heart Rate from ECG 70 NIBP 89/54 NIBP BP-Mean 65 Respiration from ECG 29 SpO2 86 I&O: 05/15/19 05/16/19 05/17/19 06:59 06:59 06:59 Intake Total 3161 1441 1492.5 Output Total 100 1145 600 Balance 3061 296 892.5 Result Diagrams: 05/16/19 04:15 05/16/19 04:15 Hospitalist ROS - Medication Medications: Active Medications Generic Name Dose Route Start Last Admin Trade Name Freq PRN Reason Stop Dose Admin Acetaminophen 650 mg 05/11/19 16:14 05/16/19 22:00 Tylenol PO 650 mg Q4H PRN Administration Headache/Fever/Mild Pain (1-3) Apixaban 2.5 mg 05/12/19 09:00 05/16/19 22:00 Eliquis PO 2.5 mg BID TEJA Administration Aspirin 81 mg 05/12/19 09:00 05/16/19 09:28 Ecotrin PO 81 mg DAILY TEJA Administration Cefdinir 600 mg 05/16/19 09:00 05/16/19 09:28 Omnicef PO 600 mg DAILY TEJA Administration Digoxin 0.125 mg 05/12/19 09:00 05/16/19 09:28 Lanoxin PO 0.125 mg DAILY TEJA Administration Famotidine 20 mg 05/12/19 21:00 05/16/19 21:59 Pepcid PO 20 mg 2100 TEJA Administration Sodium Chloride 1,000 mls @ 75 mls/hr 05/15/19 08:45 05/16/19 18:14 Normal Saline 0.9% IV 1,000 mls .[id number] TEJA Administration Metoprolol Succinate 25 mg 05/12/19 09:00 05/16/19 09:28 Toprol Xl PO 25 mg DAILY TEJA Administration Montelukast Sodium 10 mg 05/11/19 21:00 05/16/19 22:00 Singulair PO 10 mg QPM TEJA Administration Pantoprazole Sodium 40 mg 05/12/19 09:00 05/16/19 09:26 Protonix IVP 40 mg DAILY TEJA Administration Paroxetine HCl 20 mg 05/12/19 09:00 05/16/19 09:27 Paxil PO 20 mg DAILY TEJA Administration Prednisone 40 mg 05/15/19 09:00 05/16/19 09:27 Prednisone PO 05/18/19 09:01 40 mg DAILY TEJA Administration Sodium Chloride 10 ml 05/11/19 21:38 05/15/19 08:52 Flush - Normal Saline IVF 10 ml PRN PRN Administration Saline Flush Tamsulosin HCl 0.4 mg 05/16/19 09:00 05/16/19 09:27 Flomax PO 0.4 mg DAILY TEJA Administration - Exam Heart: no murmur, no gallops, no rubs, normal peripheral pulses, irregular Respiratory: CTAB, no wheezes, no rales, no ronchi, normal chest expansion, no tachypnea, normal percussion Gastrointestinal: soft, non-tender, non-distended, normal bowel sounds, no palpable masses, no hepatomegaly, no splenomegaly, no bruit Extremities: no cyanosis, no clubbing, no edema Skin: normal turgor Musculoskeletal: generalized weakness Psychiatric: normal affect, normal behavior Hosp A/P (1) Acute respiratory failure with hypoxia Code(s): J96.01 - ACUTE RESPIRATORY FAILURE WITH HYPOXIA Status: Acute (2) Influenza A Code(s): J10.1 - FLU DUE TO OTH IDENT INFLUENZA VIRUS W OTH RESP MANIFEST Status: Acute (3) Atrial fibrillation with rapid ventricular response Code(s): I48.91 - UNSPECIFIED ATRIAL FIBRILLATION Status: Acute (4) Pneumonia Code(s): J18.9 - PNEUMONIA, UNSPECIFIED ORGANISM Status: Acute (5) Sepsis Code(s): A41.9 - SEPSIS, UNSPECIFIED ORGANISM Status: Acute (6) KANU (acute kidney injury) Code(s): N17.9 - ACUTE KIDNEY FAILURE, UNSPECIFIED Status: Acute (7) Myocardial infarction Code(s): I21.9 - ACUTE MYOCARDIAL INFARCTION, UNSPECIFIED Status: Acute Qualifiers: Myocardial infarction type: type 2 Qualified Code(s): I21.A1 - Myocardial infarction type 2 (8) Urinary retention Code(s): R33.9 - RETENTION OF URINE, UNSPECIFIED Status: Acute - Plan Continue abx for pneumonia. Changed to po omnicef by Pulm. Continue Tamiflu for influenza. Continue nebs, steroids for hypoxic resp failure which seems to be much improved. Pulm following. Appreciate EP consult. Focus is rate control and low dose Eliquis. Continue the Diltiazem as needed for tachycardia. Continue home dig, beta staci. Renal function low. Susupect acute on chronic CKD. Initally worse. Neprhology consulted. IVF, Albumin. Now a little better. Appears to have some urinary retention. Start Tamsulosin. I and O cath. Still weak and a little hypoxic. Will andrea need some rehab. D/W CM. Says he doesn't have any family around. Depends on his neighbors.
[2019-05-17 04:46] LABS: #Lymphocytes 0.2 thou/uL (1.20-3.40); #Monocytes 0.4 thou/uL (0.11-0.59); #Neutrophils 6.1 thou/uL (1.40-6.50); %Eosinophils 0.4 % (0.0-10.0); %Lymphocytes 3.2 % (21.0-51.0); %Monocytes 6.5 % (0.0-10.0); %Neutrophils 89.9 % (42.0-75.0); Hemoglobin 9.4 g/dL (14.0-18.0); Mean Corpuscular HGB CONC 32.9 g/dL (32.0-36.0); Mean Corpuscular Hemoglobin 31.2 pg (27.0-31.0); Mean Corpuscular Volume 94.8 fL (78.0-98.0); Mean Platelet Volume 9.2 fL (7.4-10.4); Platelet Count 154 thou/uL (130-400); RBC Distribution Width 12.7 % (11.5-14.5); Red Blood Cell (RBC) Count 3.02 mill/uL (4.70-6.10); White Blood Cell (WBC) Count 6.8 thou/uL (4.8-10.8)
[2019-05-17 05:06] LABS: Anion Gap 14 mmol/L (10-20); BUN (Urea Nitrogen) 57 mg/dL (8.4-25.7); Calc. Creatinine Clearance 30 mL/min (70-130); Calcium 7.9 mg/dL (7.8-10.44); Carbon Dioxide 21 mmol/L (23-31); Chloride 108 mmol/L (98-107); Estimated GFR-MDRD 28; Glucose 87 mg/dL (83-110); Potassium 4.1 mmol/L (3.5-5.1); Sodium 139 mmol/L (136-145)
[2019-05-17] MEDS: Tamsulosin HCl 0.4 MG CAP PO SCH (08:00)
[2019-05-17] MEDS: Pantoprazole 40 MG VIAL IVP SCH (08:00)
[2019-05-17] MEDS: PARoxetine 20 MG TAB PO SCH (08:00)
[2019-05-17] MEDS: Apixaban 2.5 MG TAB PO SCH ×2 (08:00→21:50)
[2019-05-17] MEDS: predniSONE 20 MG TAB PO SCH (08:00)
[2019-05-17] MEDS: Cefdinir 300 MG CAP PO SCH (08:00)
[2019-05-17] MEDS: Aspirin 81 mg Enteric Coated Tablet PO SCH (08:00)
[2019-05-17] MEDS: Digoxin 0.125 MG TAB PO SCH (08:00)
--- NOTE | 2019-05-17 12:04 | PRG ---
DATE OF SERVICE: 05/17/2019 SUBJECTIVE: Mr. Ocasio is an 88-year-old white male, followed up for his acute kidney injury - hemodynamically-mediated dysfunction on top of his chronic renal failure. He has received IV hydration in the recent past. Renal function is slowly improving. He has also been diagnosed with bronchitis/pneumonia. No other complaints today. No chest pain or shortness of breath. OBJECTIVE: VITAL SIGNS: Blood pressure 152/70, heart rate 71, respiratory rate 20, temperature 97.7, O2 saturations 98%. GENERAL: Awake, not in distress, occasionally confused. HEENT: He has pinkish conjunctivae. Anicteric sclerae. NECK: No neck mass. No carotid bruits. No JVD. CHEST: No deformities. LUNGS: Decreased breath sounds. HEART: Normal sinus rhythm. No murmur. No gallops. No rubs. ABDOMEN: Globular, soft, nontender. No masses. EXTREMITIES: No edema. No deformities. MEDICATIONS: Medications of May 17, 2019, were reviewed. LABORATORY DATA: Laboratories of May 17, 2019; white count 6.8, hemoglobin 9.4. Sodium 139, potassium 4.1, chloride 108, carbon dioxide 21, BUN 57, creatinine 2.21, calcium 7.9. ASSESSMENT AND PLAN: 1. Acute kidney injury - superimposed hemodynamically-mediated dysfunction, improving renal function with gentle volume repletion. Currently, on normal saline at 75 mL/hour. Attempt to approach baseline creatinine with this patient, which is about 1.58. No other recommendations. No changes will be made with his IV fluid. No indication for any dialytic intervention. 2. Bronchitis/pneumonia, on antibiotics. 3. Overall, the patient is doing better. Job ID: [id number]
[2019-05-17] MEDS: Sodium Chloride 0.9% 1,000 ML IV SCH (17:01)
--- NOTE | 2019-05-17 21:10 | PDOC.HOSPP ---
- Subjective Encounter Date: 05/17/19 Encounter Time: 10:00 Subjective: no overnight events. This morning, feels well, endorses resolution of symptoms associated with influenza., and has no complaints. - Objective Vital Signs & Weight: Vital Signs (12 hours) Temp Pulse Resp BP Pulse Ox 05/17/19 15:10 97.7 F 68 20 156/72 H 99 05/17/19 11:12 97.7 F 71 20 152/70 H 98 Weight Weight 202 lb 3.2 oz Most Recent Monitor Data Heart Rate from ECG 70 NIBP 89/54 NIBP BP-Mean 65 Respiration from ECG 29 SpO2 86 I&O: 05/16/19 05/17/19 05/18/19 06:59 06:59 06:59 Intake Total 1441 2542.5 1620 Output Total 3568 911 7136 Balance 296 1742.5 -880 Result Diagrams: 05/17/19 04:29 05/17/19 04:29 Hospitalist ROS - Review of Systems Constitutional: denies: fever, chills, sweats, weakness, malaise, other Respiratory: denies: cough, dry, shortness of breath Cardiovascular: denies: chest pain, palpitations, orthopnea, paroxysmal noc. dyspnea, edema, light headedness, other Gastrointestinal: denies: nausea, vomiting, abdominal pain, diarrhea, constipation, melena, hematochezia, other Genitourinary: reports: retention. denies: hematuria - Medication Medications: Active Medications Generic Name Dose Route Start Last Admin Trade Name Freq PRN Reason Stop Dose Admin Acetaminophen 650 mg 05/11/19 16:14 05/16/19 22:00 Tylenol PO 650 mg Q4H PRN Administration Headache/Fever/Mild Pain (1-3) Apixaban 2.5 mg 05/12/19 09:00 05/17/19 08:00 Eliquis PO 2.5 mg BID TEJA Administration Aspirin 81 mg 05/12/19 09:00 05/17/19 08:00 Ecotrin PO 81 mg DAILY TEJA Administration Cefdinir 600 mg 05/16/19 09:00 05/17/19 08:00 Omnicef PO 600 mg DAILY TEJA Administration Digoxin 0.125 mg 05/12/19 09:00 05/17/19 08:00 Lanoxin PO 0.125 mg DAILY TEJA Administration Famotidine 20 mg 05/12/19 21:00 05/16/19 21:59 Pepcid PO 20 mg 2100 TEJA Administration Sodium Chloride 1,000 mls @ 75 mls/hr 05/15/19 08:45 05/17/19 17:01 Normal Saline 0.9% IV Not Given .[id number] Metoprolol Succinate 25 mg 05/12/19 09:00 05/17/19 08:00 Toprol Xl PO 25 mg DAILY TEJA Administration Montelukast Sodium 10 mg 05/11/19 21:00 05/16/19 22:00 Singulair PO 10 mg QPM TEJA Administration Pantoprazole Sodium 40 mg 05/12/19 09:00 05/17/19 08:00 Protonix IVP 40 mg DAILY TEJA Administration Paroxetine HCl 20 mg 05/12/19 09:00 05/17/19 08:00 Paxil PO 20 mg DAILY TEJA Administration Prednisone 40 mg 05/15/19 09:00 05/17/19 08:00 Prednisone PO 05/18/19 09:01 40 mg DAILY TEJA Administration Sodium Chloride 10 ml 05/11/19 21:38 05/15/19 08:52 Flush - Normal Saline IVF 10 ml PRN PRN Administration Saline Flush Tamsulosin HCl 0.4 mg 05/16/19 09:00 05/17/19 08:00 Flomax PO 0.4 mg DAILY TEJA Administration - Exam General Appearance: NAD, awake alert Heart: RRR, no murmur, no gallops, no rubs, normal peripheral pulses Respiratory: CTAB, no wheezes, no rales, no ronchi, normal chest expansion, no tachypnea, normal percussion Gastrointestinal: soft, non-tender, non-distended, normal bowel sounds, no palpable masses, no hepatomegaly, no splenomegaly, no bruit Extremities: 2+ LE edema Psychiatric: normal affect, normal behavior, A&O x 3 Hosp A/P - Plan (2) Influenza A Code(s): J10.1 - FLU DUE TO OTH IDENT INFLUENZA VIRUS W OTH RESP MANIFEST Status : Acute (3) Atrial fibrillation with rapid ventricular response Code(s): I48.91 - UNSPECIFIED ATRIAL FIBRILLATION Status: Acute regular rhythrm on exam () (4) Pneumonia Code(s): J18.9 - PNEUMONIA, UNSPECIFIED ORGANISM Status: Acute (6) KANU (acute kidney injury) Code(s): N17.9 - ACUTE KIDNEY FAILURE, UNSPECIFIED Status: Acute improving with fluids () (7) Myocardial infarction Code(s): I21.9 - ACUTE MYOCARDIAL INFARCTION, UNSPECIFIED Status: Acute Qualifiers: Myocardial infarction type: type 2 Qualified Code(s): I21.A1 - Myocardial infarction type 2 (8) Urinary retention Code(s): R33.9 - RETENTION OF URINE, UNSPECIFIED Status: Acute - Plan stop droplet isolation (05/17) continue IVF and valentine pending placement in rehab
[2019-05-17] MEDS: Famotidine 20 MG TAB PO SCH (21:50)
[2019-05-17] MEDS: Montelukast Sodium 10 mg Tablet PO SCH (21:50)
[2019-05-18 04:03] LABS: #Lymphocytes 0.3 thou/uL (1.20-3.40); #Monocytes 0.3 thou/uL (0.11-0.59); #Neutrophils 6.4 thou/uL (1.40-6.50); %Eosinophils 0.4 % (0.0-10.0); %Lymphocytes 3.8 % (21.0-51.0); %Monocytes 4.9 % (0.0-10.0); Hemoglobin 9.3 g/dL (14.0-18.0); Mean Corpuscular HGB CONC 32.3 g/dL (32.0-36.0); Mean Corpuscular Hemoglobin 30.8 pg (27.0-31.0); Mean Corpuscular Volume 95.4 fL (78.0-98.0); Mean Platelet Volume 8.7 fL (7.4-10.4); Platelet Count 170 thou/uL (130-400); RBC Distribution Width 12.9 % (11.5-14.5); Red Blood Cell (RBC) Count 3.01 mill/uL (4.70-6.10); White Blood Cell (WBC) Count 7.1 thou/uL (4.8-10.8)
[2019-05-18 04:27] LABS: Anion Gap 14 mmol/L (10-20); BUN (Urea Nitrogen) 50 mg/dL (8.4-25.7); Calc. Creatinine Clearance 36 mL/min (70-130); Calcium 7.8 mg/dL (7.8-10.44); Carbon Dioxide 23 mmol/L (23-31); Chloride 108 mmol/L (98-107); Estimated GFR-MDRD 34; Glucose 90 mg/dL (83-110); Magnesium 2.3 mg/dL (1.6-2.6); Potassium 3.5 mmol/L (3.5-5.1); Sodium 141 mmol/L (136-145)
[2019-05-18] MEDS: Sodium Chloride 0.9% 1,000 ML IV SCH ×3 (05:49→23:49)
[2019-05-18] MEDS: Digoxin 0.125 MG TAB PO SCH (07:46)
[2019-05-18] MEDS: Pantoprazole 40 MG VIAL IVP SCH (07:46)
[2019-05-18] MEDS: Aspirin 81 mg Enteric Coated Tablet PO SCH (07:46)
[2019-05-18] MEDS: Apixaban 2.5 MG TAB PO SCH ×2 (07:47→20:57)
[2019-05-18] MEDS: Cefdinir 300 MG CAP PO SCH (07:47)
[2019-05-18] MEDS: PARoxetine 20 MG TAB PO SCH (07:48)
[2019-05-18] MEDS: Tamsulosin HCl 0.4 MG CAP PO SCH (07:48)
[2019-05-18] MEDS: predniSONE 20 MG TAB PO SCH (07:48)
--- NOTE | 2019-05-18 11:11 | PRG ---
DATE OF SERVICE: 05/18/2019 SUBJECTIVE: Mr. Ocasio is an 88-year-old white male, seen by the Renal Service for his acute kidney injury that was hemodynamically-mediated renal dysfunction. He has received IV hydration for the last several days. There is significant improvement with the renal function. This morning, he voices no complaints of chest pain or shortness of breath. However, he is still confused. OBJECTIVE: VITAL SIGNS: Blood pressure is 169/81, heart rate 60, respiratory rate 16, temperature 97.3, and pulse ox 99%. GENERAL: Awake, alert, comfortable, not in distress. SKIN: Adequate turgor. HEENT: Slightly pale conjunctivae. Anicteric sclerae. NECK: No neck mass. No carotid bruits. No JVD. CHEST: No deformities. LUNGS: Clear breath sounds. HEART: Normal sinus rhythm. No murmurs, gallops, or rubs. ABDOMEN: Globular. Soft. Nontender. No masses. EXTREMITIES: No edema. No deformities. MEDICATIONS: Medications of May 18, 2019, reviewed. LABORATORY DATA: Laboratories of May 18, 2019: White count 7.1, hemoglobin 9.3, sodium 141, potassium 3.5, chloride 108, carbon dioxide 23, BUN 50, creatinine 1.88, calcium 7.8, magnesium 2.3. ASSESSMENT AND PLAN: 1. Acute kidney injury - secondary to hemodynamically-mediated renal dysfunction. Renal function has much improved. Continue gentle volume repletion. He is approaching near baseline creatinine. 2. Pneumonia and bronchitis, on p.o. antibiotics. Overall, agree with current management. Job ID: [id number]
--- NOTE | 2019-05-18 13:59 | PDOC.HOSPP ---
- Subjective Encounter Date: 05/18/19 Encounter Time: 09:30 Subjective: no overnight events. Lying comfortably in bed and has no complaints. Droplet precautions discontinued, renal function continues to improve - Objective Vital Signs & Weight: Vital Signs (12 hours) Temp Pulse Resp BP BP Pulse Ox 05/18/19 11:35 97.4 F L 60 12 167/74 H 96 05/18/19 07:42 97.3 F L 60 16 169/81 H 99 05/18/19 04:00 98.3 F 60 18 165/77 H 96 Weight Weight 193 lb 8 oz Most Recent Monitor Data Heart Rate from ECG 70 NIBP 89/54 NIBP BP-Mean 65 Respiration from ECG 29 SpO2 86 I&O: 05/17/19 05/18/19 05/19/19 06:59 06:59 06:59 Intake Total 2542.5 2580 Output Total 800 3250 Balance 1742.5 -670 Result Diagrams: 05/18/19 03:23 05/18/19 03:23 Hospitalist ROS - Review of Systems Constitutional: denies: fever, chills, sweats, weakness, malaise, other Respiratory: denies: cough, dry, shortness of breath, hemoptysis, SOB with excertion, pleuritic pain, sputum, wheezing, other Cardiovascular: denies: chest pain, palpitations, orthopnea, paroxysmal noc. dyspnea, edema, light headedness, other Gastrointestinal: denies: nausea, vomiting, abdominal pain, diarrhea, constipation, melena, hematochezia, other Genitourinary: denies: dysuria, frequency, incontinence, hematuria, retention, other - Medication Medications: Active Medications Generic Name Dose Route Start Last Admin Trade Name Freq PRN Reason Stop Dose Admin Acetaminophen 650 mg 05/11/19 16:14 05/16/19 22:00 Tylenol PO 650 mg Q4H PRN Administration Headache/Fever/Mild Pain (1-3) Apixaban 2.5 mg 05/12/19 09:00 05/18/19 07:47 Eliquis PO 2.5 mg BID TEJA Administration Aspirin 81 mg 05/12/19 09:00 05/18/19 07:46 Ecotrin PO 81 mg DAILY TEJA Administration Cefdinir 600 mg 05/16/19 09:00 05/18/19 07:47 Omnicef PO 600 mg DAILY TEJA Administration Digoxin 0.125 mg 05/12/19 09:00 05/18/19 07:46 Lanoxin PO 0.125 mg DAILY TEJA Administration Famotidine 20 mg 05/12/19 21:00 05/17/19 21:50 Pepcid PO 20 mg 2100 TEJA Administration Sodium Chloride 1,000 mls @ 75 mls/hr 05/15/19 08:45 05/18/19 05:49 Normal Saline 0.9% IV 1,000 mls .[id number] Administration Metoprolol Succinate 25 mg 05/12/19 09:00 05/18/19 07:48 Toprol Xl PO 25 mg DAILY TEJA Administration Montelukast Sodium 10 mg 05/11/19 21:00 05/17/19 21:50 Singulair PO 10 mg QPM TEJA Administration Pantoprazole Sodium 40 mg 05/12/19 09:00 05/18/19 07:46 Protonix IVP 40 mg DAILY TEJA Administration Paroxetine HCl 20 mg 05/12/19 09:00 05/18/19 07:48 Paxil PO 20 mg DAILY TEJA Administration Sodium Chloride 10 ml 05/11/19 21:38 05/15/19 08:52 Flush - Normal Saline IVF 10 ml PRN PRN Administration Saline Flush Tamsulosin HCl 0.4 mg 05/16/19 09:00 05/18/19 07:48 Flomax PO 0.4 mg DAILY TEJA Administration - Exam General Appearance: NAD, awake alert Heart: no murmur, no gallops, irregular Heart - other findings: rate 60-70s Respiratory: no wheezes, no rales, rhonchi Respiratory - other findings: rhonchi improved compared to yesterday; 92% on 3L NC Gastrointestinal: soft, non-tender, non-distended, normal bowel sounds Extremities: no edema Psychiatric: normal affect, normal behavior, A&O x 3 Hosp A/P - Plan (2) Influenza A Code(s): J10.1 - FLU DUE TO OTH IDENT INFLUENZA VIRUS W OTH RESP MANIFEST Status : Acute (3) Atrial fibrillation with rapid ventricular response Code(s): I48.91 - UNSPECIFIED ATRIAL FIBRILLATION Status: Acute regular rhythrm on exam () (4) Pneumonia Code(s): J18.9 - PNEUMONIA, UNSPECIFIED ORGANISM Status: Acute (6) KANU (acute kidney injury) Code(s): N17.9 - ACUTE KIDNEY FAILURE, UNSPECIFIED Status: Acute improving with fluids () (7) Myocardial infarction Code(s): I21.9 - ACUTE MYOCARDIAL INFARCTION, UNSPECIFIED Status: Acute Qualifiers: Myocardial infarction type: type 2 Qualified Code(s): I21.A1 - Myocardial infarction type 2 (8) Urinary retention Code(s): R33.9 - RETENTION OF URINE, UNSPECIFIED Status: Acute - Plan completed treatment for influenza and doing well; tessalon at night PRN cough Rate well controlled for days; will transfer to regular medical floor KANU improving and nearly at baseline; will continue same treatment as per nephrology continue IVF and valentine; will attempt valentine trial (05/18); likely DC with or without valentine Per patient preference, will discharge home and attempt home health and PT
[2019-05-18] MEDS ORDERED: Benzonatate 100 MG CAP PO PRN (14:03)
[2019-05-18] MEDS: Montelukast Sodium 10 mg Tablet PO SCH (20:57)
[2019-05-18] MEDS: Famotidine 20 MG TAB PO SCH (20:57)
[2019-05-19 05:45] LABS: #Lymphocytes 0.3 thou/uL (1.20-3.40); #Monocytes 0.4 thou/uL (0.11-0.59); #Neutrophils 7.7 thou/uL (1.40-6.50); %Basophils 0.1 % (0.0-1.0); %Eosinophils 0.5 % (0.0-10.0); %Lymphocytes 3.9 % (21.0-51.0); %Monocytes 4.9 % (0.0-10.0); %Neutrophils 90.6 % (42.0-75.0); Hemoglobin 9.4 g/dL (14.0-18.0); Mean Corpuscular HGB CONC 32.5 g/dL (32.0-36.0); Mean Corpuscular Hemoglobin 31.3 pg (27.0-31.0); Mean Corpuscular Volume 96.2 fL (78.0-98.0); Mean Platelet Volume 9.1 fL (7.4-10.4); Platelet Count 182 thou/uL (130-400); RBC Distribution Width 13.2 % (11.5-14.5); Red Blood Cell (RBC) Count 3.02 mill/uL (4.70-6.10); White Blood Cell (WBC) Count 8.5 thou/uL (4.8-10.8)
[2019-05-19 06:12] LABS: Anion Gap 10 mmol/L (10-20); BUN (Urea Nitrogen) 46 mg/dL (8.4-25.7); Calc. Creatinine Clearance 38 mL/min (70-130); Calcium 8.1 mg/dL (7.8-10.44); Carbon Dioxide 26 mmol/L (23-31); Chloride 111 mmol/L (98-107); Estimated GFR-MDRD 38; Glucose 100 mg/dL (83-110); Potassium 3.4 mmol/L (3.5-5.1); Sodium 144 mmol/L (136-145)
[2019-05-19] MEDS ORDERED: Potassium Chloride 20 MEQ TAB PO SCH (07:46)
[2019-05-19] MEDS: Apixaban 2.5 MG TAB PO SCH ×2 (08:29→20:58)
[2019-05-19] MEDS: Aspirin 81 mg Enteric Coated Tablet PO SCH (08:30)
[2019-05-19] MEDS: Digoxin 0.125 MG TAB PO SCH (08:30)
[2019-05-19] MEDS: Cefdinir 300 MG CAP PO SCH (08:33)
[2019-05-19] MEDS: PARoxetine 20 MG TAB PO SCH (08:33)
[2019-05-19] MEDS: Pantoprazole 40 MG VIAL IVP SCH (08:34)
[2019-05-19] MEDS: Tamsulosin HCl 0.4 MG CAP PO SCH (08:34)
--- NOTE | 2019-05-19 18:13 | PDOC.HOSPP ---
- Subjective Encounter Date: 05/19/19 Encounter Time: 09:00 Subjective: no overnight events. This morning, feeling well and has no complaints. Pending discharge rehab vs SNF vs Home with aid - Objective Vital Signs & Weight: Vital Signs (12 hours) Temp Pulse Resp BP Pulse Ox 05/19/19 08:30 60 05/19/19 08:00 97.4 F L 59 L 20 155/73 H 92 L 05/19/19 07:50 97.4 F L 62 18 159/73 H 92 L Weight Weight 195 lb 9.6 oz Most Recent Monitor Data Heart Rate from ECG 70 NIBP 89/54 NIBP BP-Mean 65 Respiration from ECG 29 SpO2 86 I&O: 05/18/19 05/19/19 05/20/19 06:59 06:59 06:59 Intake Total 2580 1140 Output Total 3250 1400 325 Balance -670 -260 -325 Result Diagrams: 05/19/19 05:19 05/19/19 05:19 Hospitalist ROS - Review of Systems Constitutional: denies: fever, chills, sweats, weakness, malaise, other Respiratory: denies: cough, dry, shortness of breath, hemoptysis, SOB with excertion, pleuritic pain, sputum, wheezing, other Cardiovascular: denies: chest pain, palpitations, orthopnea, paroxysmal noc. dyspnea, edema, light headedness, other Gastrointestinal: denies: nausea, vomiting, abdominal pain, diarrhea, constipation, melena, hematochezia, other Genitourinary: denies: dysuria, frequency, incontinence, hematuria, retention, other Neurological: reports: weakness - Medication Medications: Active Medications Generic Name Dose Route Start Last Admin Trade Name Freq PRN Reason Stop Dose Admin Acetaminophen 650 mg 05/11/19 16:14 05/16/19 22:00 Tylenol PO 650 mg Q4H PRN Administration Headache/Fever/Mild Pain (1-3) Apixaban 2.5 mg 05/12/19 09:00 05/19/19 08:29 Eliquis PO 2.5 mg BID TEJA Administration Aspirin 81 mg 05/12/19 09:00 05/19/19 08:30 Ecotrin PO 81 mg DAILY TEJA Administration Cefdinir 600 mg 05/16/19 09:00 05/19/19 08:33 Omnicef PO 600 mg DAILY TEJA Administration Digoxin 0.125 mg 05/12/19 09:00 05/19/19 08:30 Lanoxin PO 0.125 mg DAILY TEJA Administration Famotidine 20 mg 05/12/19 21:00 05/18/19 20:57 Pepcid PO 20 mg 2100 TEJA Administration Sodium Chloride 1,000 mls @ 75 mls/hr 05/15/19 08:45 05/18/19 23:49 Normal Saline 0.9% IV 1,000 mls .[id number] TEJA Administration Metoprolol Succinate 25 mg 05/12/19 09:00 05/19/19 08:33 Toprol Xl PO 25 mg DAILY TEJA Administration Montelukast Sodium 10 mg 05/11/19 21:00 05/18/19 20:57 Singulair PO 10 mg QPM TEJA Administration Pantoprazole Sodium 40 mg 05/12/19 09:00 05/19/19 08:34 Protonix IVP 40 mg DAILY TEJA Administration Paroxetine HCl 20 mg 05/12/19 09:00 05/19/19 08:33 Paxil PO 20 mg DAILY TEJA Administration Sodium Chloride 10 ml 05/11/19 21:38 05/15/19 08:52 Flush - Normal Saline IVF 10 ml PRN PRN Administration Saline Flush Tamsulosin HCl 0.4 mg 05/16/19 09:00 05/19/19 08:34 Flomax PO 0.4 mg DAILY TEJA Administration - Exam General Appearance: NAD, awake alert Neck: no JVD Heart: no murmur, no gallops, no rubs, irregular Respiratory: CTAB, no wheezes, no rales Respiratory - other findings: mild rhonchi, satting 96% on RA while sitting Gastrointestinal: soft, non-tender, non-distended, normal bowel sounds Extremities: no edema Psychiatric: normal affect, normal behavior, oriented to person, oriented to place. negative: oriented to time (appears mildly confused today and per nurse choked when tried to take medications) Hosp A/P - Plan (2) Influenza A Code(s): J10.1 - FLU DUE TO OTH IDENT INFLUENZA VIRUS W OTH RESP MANIFEST Status : Acute (3) Atrial fibrillation with rapid ventricular response Code(s): I48.91 - UNSPECIFIED ATRIAL FIBRILLATION Status: Acute regular rhythrm on exam () (4) Pneumonia Code(s): J18.9 - PNEUMONIA, UNSPECIFIED ORGANISM Status: Acute (6) KANU (acute kidney injury) Code(s): N17.9 - ACUTE KIDNEY FAILURE, UNSPECIFIED Status: Acute improving with fluids () (7) Myocardial infarction Code(s): I21.9 - ACUTE MYOCARDIAL INFARCTION, UNSPECIFIED Status: Acute Qualifiers: Myocardial infarction type: type 2 Qualified Code(s): I21.A1 - Myocardial infarction type 2 (8) Urinary retention Code(s): R33.9 - RETENTION OF URINE, UNSPECIFIED Status: Acute - Plan completed treatment for influenza and doing well; tessalon at night PRN cough Rate well controlled for days; Creatinine at baseline; removed valentine and voiding spontaneously. postvoid residuals very low. Patient prefers to go home but unsure of his ability to take care of self despite occasional skilled help; requested CM to reeval possibilty of rehab/SNF consulted swallow for dysphagia; meanwhile changed food to dysphagia
[2019-05-19] MEDS: Famotidine 20 MG TAB PO SCH (20:57)
[2019-05-19] MEDS: Montelukast Sodium 10 mg Tablet PO SCH (20:58)
[2019-05-20 06:22] LABS: Anion Gap 13 mmol/L (10-20); BUN (Urea Nitrogen) 40 mg/dL (8.4-25.7); Calc. Creatinine Clearance 42 mL/min (70-130); Calcium 8.4 mg/dL (7.8-10.44); Carbon Dioxide 24 mmol/L (23-31); Chloride 113 mmol/L (98-107); Estimated GFR-MDRD 43; Glucose 99 mg/dL (83-110); Potassium 4.3 mmol/L (3.5-5.1); Sodium 146 mmol/L (136-145)
[2019-05-20] MEDS: Cefdinir 300 MG CAP PO SCH (09:05)
[2019-05-20] MEDS: Tamsulosin HCl 0.4 MG CAP PO SCH (09:06)
[2019-05-20] MEDS: Pantoprazole 40 MG VIAL IVP SCH (09:06)
[2019-05-20] MEDS: Aspirin 81 mg Enteric Coated Tablet PO SCH (09:06)
[2019-05-20] MEDS: Digoxin 0.125 MG TAB PO SCH (09:06)
[2019-05-20] MEDS: PARoxetine 20 MG TAB PO SCH (09:06)
[2019-05-20] MEDS: Apixaban 2.5 MG TAB PO SCH ×2 (09:07→21:20)
[2019-05-20] MEDS: Montelukast Sodium 10 mg Tablet PO SCH (21:19)
[2019-05-20] MEDS: Famotidine 20 MG TAB PO SCH (21:20)
[2019-05-21] MEDS: Aspirin 81 mg Enteric Coated Tablet PO SCH (08:27)
[2019-05-21] MEDS: Cefdinir 300 MG CAP PO SCH (08:28)
[2019-05-21] MEDS: Digoxin 0.125 MG TAB PO SCH (08:28)
[2019-05-21] MEDS: Apixaban 2.5 MG TAB PO SCH (08:30)
[2019-05-21] MEDS: PARoxetine 20 MG TAB PO SCH (08:30)
[2019-05-21] MEDS: Pantoprazole 40 MG VIAL IVP SCH (08:31)
[2019-05-21] MEDS: Tamsulosin HCl 0.4 MG CAP PO SCH (08:36)
[2019-05-21] MEDS ORDERED: Lisinopril 10 MG TAB PO SCH (10:30)
[2019-05-21] MEDS ORDERED: NIFEdipine XL 30 MG TAB PO SCH (10:30)
[2019-05-21 11:36] VITALS: BP 172/76; TEMP 97.2
[2019-05-22] MEDS ORDERED: NIFEdipine XL 30 MG TAB PO SCH (09:00)
[2019-05-22] MEDS ORDERED: Lisinopril 10 MG TAB PO SCH (09:00)
[2019-05-22] MEDS ORDERED: Spironolactone 25 MG TAB PO SCH (09:00)
--- NOTE | 2019-05-22 12:35 | DIS ---
DATE OF ADMISSION: 05/11/2019 DATE OF DISCHARGE: 05/21/2019 HOSPITAL COURSE: Mr. Ocasio is an 88-year-old male with a history of ischemic cardiomyopathy with defibrillator, who presented for shortness of breath. He was diagnosed with acute respiratory failure with hypoxia due to influenza A pneumonia, atrial fibrillation with rapid ventricular response, KANU, and type 2 NSTEMI. The patient was treated with Tamiflu for the influenza and by the day of discharge, was having only moderate coughing with some sputum production, however, significantly improved. He was breathing and saturating well on room air. As far his atrial fibrillation with RVR, Cardiology was consulted and he was started on a Cardizem drip, which was transitioned to oral medication. On the day of discharge, he was in sinus rhythm and on anticoagulation. As far as KANU, it was thought to be both prerenal and due to obstruction. The patient had a Jones placed during his inpatient stay and KANU resolved with supportive management. Two days prior to the day of discharge, the Jones trial was successful and the patient was urinating spontaneously without issues. The patient was discharged to a rehabilitation facility after discussion with his friend concerning the patient has no family members, who are medical decision makers. However, the patient was requested to sign an official MPOA considering his significant comorbidities. Job ID: [id number]
== END 2019-05-21 15:03 | DRG 871 ==
LOC: ERS 12:33 → IMCU/EMU 15:21 → 2NO 05-13 20:05 → T4-A 05-18 15:41
PROVIDERS: ADMIT Internal Medicine; ATTEND Internal Medicine
PROC: 5A09357 Assistance with Respiratory Ventilation, Less than 24 Consecutive Hours, Continuous Positive Airway Pressure (ICD-10-PCS; principal; 2019-05-11)
DX: A41.9 Sepsis, unspecified organism (principal); J96.01 Acute respiratory failure with hypoxia; I21.A1 Myocardial infarction type 2; J10.00 Influenza due to other identified influenza virus with unspecified type of pneumonia; I50.22 Chronic systolic (congestive) heart failure; N17.9 Acute kidney failure, unspecified; I48.19 Other persistent atrial fibrillation; I13.0 Hypertensive heart and chronic kidney disease with heart failure and stage 1 through stage 4 chronic kidney disease, or unspecified chronic kidney disease; I25.5 Ischemic cardiomyopathy; I25.10 Atherosclerotic heart disease of native coronary artery without angina pectoris; J06.9 Acute upper respiratory infection, unspecified; N18.9 Chronic kidney disease, unspecified; J40 Bronchitis, not specified as acute or chronic; R33.9 Retention of urine, unspecified; R13.10 Dysphagia, unspecified; Z95.810 Presence of automatic (implantable) cardiac defibrillator; Z87.891 Personal history of nicotine dependence; Z79.82 Long term (current) use of aspirin; Z79.899 Other long term (current) drug therapy; Z79.01 Long term (current) use of anticoagulants; Z95.5 Presence of coronary angioplasty implant and graft
CPT/HCPCS: 36415; 71045; 76770; 80048; 80053; 80061; 80162; 81003; 81015; 82553; 82805; 83605; 83630; 83735; 83880; 84443; 84484; 85025; 87040; 87045; 87046; 87324; 87328; 87329; 87427; 87449; 87804; 93005; 93306; 94660; 96365; 96366; 96368; 96375; 99292; C9113; J0456; J0696; J1160; J1650; J1940; J2920; J3370; J3490; J7050; J7512; P9047